=== PATIENT | female | born 1985 | race Caucasian/White ===

== ENCOUNTER 2020-08-22 17:33 | Emergency (ER) | payer OTHER ==
[2020-08-22] MEDS ORDERED: ALBUTEROL 1 PUFF INH STA (18:41)
[2020-08-22 18:59] LABS: HCG UR QUAL NEGATIVE
[2020-08-22 19:09] VITALS: BP 114/72
--- NOTE | 2020-08-22 19:16 | ED Physician Documentation ---
History of Present Illness - Stated complaint Stated Complaint: CHEST TIGHTNESS - Chief complaint Chief Complaint: Cardiac - History obtained from History obtained from: Patient - History of Present Illness Timing: How many days ago (3) Pain level max: 2 Pain level now: 2 - Additonal information Additional information: 34-year-old female presents to the emergency department stating that her Chest feels tight and like she is having difficulty getting a full breath. Does have a history of asthma. She states that her inhaler was several years old when she tried to use it. She states she did not feel any different. No fevers. No coughing. She states that she did have emesis a few days ago x1. Patient states that there is a possibility she could be . No cardiac history. No recent travel. No recent antibiotics. Review of Systems Constitutional: denies: Fever, Chills Ears: denies: Ear pain Nose: denies: Rhinorrhea / runny nose, Congestion, Sinus pressure / pain Throat: denies: Sore throat Cardiac: denies: Palpitations, Calf pain Respiratory: reports: Dyspnea, Wheezing. denies: Cough, Hemoptysis GI: denies: Abdominal Pain, Nausea, Vomiting : denies: Dysuria, Frequency, Hesitancy Skin: denies: Rash Musculoskeletal: denies: Neck pain, Back pain Neurologic: denies: Headache PD PAST MEDICAL HISTORY - Past Medical History Past Medical History: Yes Respiratory: Asthma Psych: Anxiety - Past Surgical History Past Surgical History: No - Present Medications Home Medications: Ambulatory Orders Medication Instructions Recorded Confirmed Albuterol Sulf [Ventolin Hfa 1 - 2 puffs INH Q4HR PRN #1 inhaler 08/22/20 Inhaler] Diclofenac Potassium 50 mg PO DAILY 08/22/20 08/22/20 Escitalopram [Lexapro] 10 mg PO BIDWM 08/22/20 08/22/20 - Allergies Allergies/Adverse Reactions: Allergies Allergy/AdvReac Type Severity Reaction Status Date / Time egg white Allergy Nausea Uncoded 08/22/20 17:37 - Social History Does the pt smoke?: No Smoking Status: Never smoker Does the pt drink ETOH?: Yes Does the pt have substance abuse?: No - Immunizations Immunizations are current?: Yes PD ED PE NORMAL - Vitals Vital signs reviewed: Yes - General General: Alert and oriented X 3, No acute distress - HEENT HEENT: Moist mucous membranes - Neck Neck: Supple, no meningeal sign - Cardiac Cardiac: RRR, Strong equal pulses - Respiratory Respiratory: No respiratory distress, Other (Diminished breath sounds bilaterally, mild wheeze) - Abdomen Abdomen: Soft, Non tender, Non distended - Derm Derm: Warm and dry - Neuro Neuro: Alert and oriented X 3 - Psych Psych: Normal mood, Normal affect Results - Vitals Vitals: Vital Signs - 24 hr 08/22/20 08/22/20 08/22/20 17:39 18:25 19:08 Temperature 36.6 C Heart Rate 91 103 H 84 Respiratory 18 14 14 Rate Blood Pressure 118/68 104/66 114/72 O2 Saturation 100 99 98 08/22/20 19:10 Temperature Heart Rate 88 Respiratory 16 Rate Blood Pressure O2 Saturation Oxygen O2 Source Room air - EKG (time done) 1745 Rate: Rate (enter#) (75) Rhythm: NSR [place]: Normal Intervals: Normal TN QRS: Normal Ischemia: Normal ST segments - Labs Labs: Laboratory Tests 08/22/20 18:52 Urine HCG, Qual NEGATIVE PD MEDICAL DECISION MAKING - ED course Complexity details: re-evaluated patient, considered differential, d/w patient ED course: 34-year-old female with what appears to be an asthma exacerbation. She was given albuterol here and symptoms resolved. Feels much better. Will prescribe a new inhaler for home. She will use this with a spacer. Patient counseled regarding signs and symptoms for which I believe and urgent re-evaluation would be necessary. Patient with good understanding of and agreement to plan and is comfortable going home at this time This document was made in part using voice recognition software. While efforts are made to proofread this document, sound alike and grammatical errors may occur. Departure - Departure Disposition: Home, Self Care Clinical Impression: Asthma Qualifiers: Asthma severity: unspecified severity Asthma persistence: unspecified Asthma complication type: unspecified Qualified Code(s): J45.909 - Unspecified asthma, uncomplicated Condition: Good Instructions: ED Reactive Airway Disease Follow-Up: Michael Dick [Primary Care Provider] - Within 1 week Prescriptions: Albuterol Sulf [Ventolin Hfa Inhaler] 1 - 2 puffs INH Q4HR PRN #1 inhaler PRN Reason: Shortness Of Air/Wheezing Comments: Follow-up with your primary care provider for further care. Return if you worsen. Continue to use the inhaler as needed at home. Discharge Date/Time: 08/22/20 19:34
== END 2020-08-22 19:34 | disposition home or self-care (01) ==
LOC: ED 17:33
DX: J45.901 Unspecified asthma with (acute) exacerbation (principal); R07.89 Other chest pain
CPT/HCPCS: 81025; 93005; 94640; 99283

== ENCOUNTER 2020-09-11 18:16 | Emergency (ER) | payer OTHER ==
[2020-09-11 18:35] VITALS: BP 109/77
--- NOTE | 2020-09-11 18:36 | ED Physician Documentation ---
PD HPI HEAD INJURY - Stated complaint Stated Complaint: HEAD INJURY - Chief complaint Chief Complaint: Trauma Hd/Nk - History obtained from History obtained from: Patient - History of Present Illness Mechanism of head injury: Blow Where head injury occurred: Work Timing - onset: How many days ago (3) Pain level max: 7 Pain level now: 6 Location of injury: Back Quality of pain: Aching, Dull Associated symptoms: Neck pain (mild). No: LOC, AMS, Amnesia, Nausea / vomiting, Paresthesias, Seizures, Ear drainage, Nasal drainage Contributing factors: No: Anticoagulated, Intoxicated Recently seen: Not recently seen - Additional information Additional information: Patient is a 34-year-old female who works at [employer]. She states 3 days ago she was at work when a solid core door fell off of a ladder striking her in the back of the head and neck. She states since that time she has had headaches and nausea. No vomiting. No loss of consciousness. No numbness or tingling. No focal neurological deficits. Worse with movement, better with rest. Denies any possibility of . Is not breast-feeding. Review of Systems Ten Systems: 10 systems reviewed and negative Constitutional: denies: Fever, Chills Throat: denies: Sore throat Respiratory: denies: Cough GI: denies: Vomiting, Diarrhea : denies: Unable to Void, Incontinent Skin: denies: Rash Musculoskeletal: denies: Back pain Neurologic: denies: Focal weakness, Numbness, Headache PD PAST MEDICAL HISTORY - Past Medical History Respiratory: Asthma Psych: Anxiety - Past Surgical History Past Surgical History: No - Present Medications Home Medications: Ambulatory Orders Medication Instructions Recorded Confirmed Albuterol Sulf [Ventolin Hfa 1 - 2 puffs INH Q4HR PRN #1 inhaler 08/22/20 Inhaler] Diclofenac Potassium 50 mg PO DAILY 08/22/20 08/22/20 Escitalopram [Lexapro] 10 mg PO BIDWM 08/22/20 08/22/20 - Allergies Allergies/Adverse Reactions: Allergies Allergy/AdvReac Type Severity Reaction Status Date / Time egg white Allergy Nausea Uncoded 09/11/20 18:21 - Social History Does the pt smoke?: No Smoking Status: Never smoker Does the pt drink ETOH?: Yes Does the pt have substance abuse?: No - Immunizations Immunizations are current?: Yes PD ED PE NORMAL - Vitals Vital signs reviewed: Yes - General General: Alert and oriented X 3, No acute distress - HEENT HEENT: Atraumatic, PERRL, EOMI, Moist mucous membranes, Other (No scalp hematomas. No palpable skull fractures.) - Neck Neck: Supple, no meningeal sign, Other (Mild tenderness upper C-spine. No step- off or deformity.) - Cardiac Cardiac: RRR - Respiratory Respiratory: No respiratory distress, Clear bilaterally - Abdomen Abdomen: Soft, Non tender, Non distended - Back Back: No CVA TTP, No spinal TTP - Derm Derm: Warm and dry - Extremities Extremities: No edema - Neuro Neuro: Alert and oriented X 3, parts lister 2-12 intact, No motor deficit, No sensory deficit, Normal speech Eye Opening: Spontaneous Motor: Obeys Commands Verbal: Oriented GCS Score: 15 - Psych Psych: Normal mood, Normal affect Results - Vitals Vitals: Vital Signs - 24 hr 09/11/20 18:21 Temperature 36.5 C Heart Rate 73 Respiratory 16 Rate Blood Pressure 109/77 O2 Saturation 98 Oxygen O2 Source Room air - Rads (name of study) head Ct Radiology: Prelim report reviewed, EMP read contemporaneously, See rad report (no acute abnormality) c-spiine CT Radiology: Prelim report reviewed, EMP read contemporaneously, See rad report (no acute abnormality) PD MEDICAL DECISION MAKING - ED course Complexity details: reviewed results, re-evaluated patient, considered differential, d/w patient ED course: 34-year-old female status post a closed head injury 3 days ago. Still symptomatic. Also having some neck pain. CT of the head and neck are normal. Likely mild concussion. We will have her follow-up with her doctor for further care. Patient counseled regarding signs and symptoms for which I believe and urgent re-evaluation would be necessary. Patient with good understanding of and agreement to plan and is comfortable going home at this time This document was made in part using voice recognition software. While efforts are made to proofread this document, sound alike and grammatical errors may occur. Departure - Departure Disposition: 01 Home, Self Care Clinical Impression: Closed head injury Qualifiers: Encounter type: initial encounter Qualified Code(s): S09.90XA - Unspecified injury of head, initial encounter Condition: Good Instructions: ED Head Injury Closed Follow-Up: Michael Dick [Primary Care Provider] - Within 1 week Comments: Follow up with your doctor in 1 week for repeat evaluation. Your head CT and cervical spine CT are negative tonight. You likely have a mild concussion. Avoid tv, phone and computer screens. You should not be driving while you are still having symptoms of headaches and nausea. Discharge Date/Time: 09/11/20 19:15
--- NOTE | 2020-09-11 19:00 | CT Report ---
PROCEDURE: CERVICAL SPINE WO INDICATIONS: falling object vs neck 3 days ago TECHNIQUE: Noncontrast 3 mm thick sections acquired from the skull base to the T4 level. Sagittal and coronal r eformats were then constructed. For radiation dose reduction, the following was used: automated exp osure control, adjustment of mA and/or kV according to patient size. COMPARISON: None. FINDINGS: Image quality: Excellent. Bones: No fractures or dislocations. Visualized superior ribs are intact. Mild to moderate C5-C6 de generative disc disease. Mild bilateral C6-C7 and C7-T1 facet arthropathy. Soft tissues: Prevertebral soft tissues are normal in thickness. No paravertebral hematomas. No ap ical pneumothoraces. IMPRESSION: No fracture. No acute osseous lesion. If there is continued clinical concern for pathology, then MRI should be considered for further evaluation. Reviewed by: Amy Vásquez MD, PhD on 09/11/2020 6:58 PM PDT Approved by: Amy Vásquez MD, PhD on 09/11/2020 6:58 PM PDT Station ID: [id number]
--- NOTE | 2020-09-11 19:01 | CT Report ---
PROCEDURE: HEAD WO INDICATIONS: falling object vs head 3 days ago TECHNIQUE: Noncontrast 4.5 mm thick angled axial sections acquired from the foramen magnum to the vertex. For r adiation dose reduction, the following was used: automated exposure control, adjustment of mA and/or kV according to patient size. COMPARISON: None. FINDINGS: Image quality: Excellent. CSF spaces: Basal cisterns are patent. No extra-axial fluid collections. Ventricles are normal in size and shape. Brain: No midline shift. No intracranial masses or hemorrhage. Incidental note made of cavum septum pellucidum. [place]osta-white matter interface is normal. Skull and face: Calvarium and visualized facial bones are intact, without suspicious lesions. Sinuses: Visualized sinuses and mastoids are clear. IMPRESSION: No acute intracranial disease process. Reviewed by: Amy Vásquez MD, PhD on 09/11/2020 7:00 PM PDT Approved by: Amy Vásquez MD, PhD on 09/11/2020 7:00 PM PDT Station ID: [id number]
== END 2020-09-11 19:15 | disposition home or self-care (01) ==
LOC: ED 18:16
DX: S09.90XA Unspecified injury of head, initial encounter (principal); W20.8XXA Other cause of strike by thrown, projected or falling object, initial encounter; Y93.89 Activity, other specified; Y92.512 Supermarket, store or market as the place of occurrence of the external cause; Y99.0 Civilian activity done for income or pay
CPT/HCPCS: 99284

== ENCOUNTER 2020-11-17 20:19 | Emergency (ER) | payer OTHER ==
[2020-11-17 21:47] LABS: BASOPHILS # (AUTO) 0.1 10^3/uL (0.0-0.1); BASOPHILS % (AUTO) 0.8 %; EOSINOPHILS # (AUTO) 0.2 10^3/uL (0.0-0.7); EOSINOPHILS % (AUTO) 3.3 %; HCT - HEMATOCRIT 38.4 % (37.0-47.0); HGB - HEMOGLOBIN 12.8 g/dL (12.0-16.0); LYMPHOCYTES # (AUTO) 1.5 10^3/uL (1.5-3.5); LYMPHOCYTES % (AUTO) 23.2 %; MEAN CORPUSCULAR HEMOGLOBIN 32.9 pg (27.0-31.0); MEAN CORPUSCULAR HGB CONC 33.3 g/dL (32.0-36.0); MEAN CORPUSCULAR VOLUME 98.7 fL (81.0-99.0); MEAN PLATELET VOLUME 9.6 fL (7.9-10.8); MONOCYTES # (AUTO) 0.6 10^3/uL (0.0-1.0); MONOCYTES % (AUTO) 8.6 %; NEUTROPHILS # (AUTO) 4.3 10^3/uL (1.5-6.6); NEUTROPHILS % (AUTO) 63.9 %; PLT - PLATELET COUNT 264 10^3/uL (130-450); RED BLOOD COUNT 3.89 10^6/uL (4.20-5.40); RED CELL DISTRIBUTION WIDTH 12.2 % (12.0-15.0); WHITE BLOOD COUNT 6.6 x10^3/uL (4.8-10.8)
[2020-11-17 22:00] LABS: ALBUMIN 4.6 g/dL (3.2-5.5); ALBUMIN/GLOBULIN RATIO 1.5 (1.0-2.2); BILIRUBIN,TOTAL 0.7 mg/dL (0.2-1.0); CALCIUM 9.5 mg/dL (8.5-10.3); CREATININE 0.7 mg/dL (0.4-1.0); POTASSIUM 3.8 mmol/L (3.5-5.0); TOTAL PROTEIN 7.7 g/dL (6.7-8.2)
--- NOTE | 2020-11-17 22:12 | ED Physician Documentation ---
History of Present Illness - Stated complaint Stated Complaint: BODY PX/HEADACHES X14 DAYS - Chief complaint Chief Complaint: General - History obtained from History obtained from: Patient - Additonal information Additional information: 34-year-old woman presents with generalized body aches for the past 2 weeks, starting in her wrists, moving upwards, now affecting her thighs and arms. She also has had headache to bilateral neck area radiating to the front that is aching, intermittent. Not currently with headache. Patient is not vaccinated against COVID-19. Also endorses intermittent dizziness and brain fog. AOx4 present. Review of Systems Ten Systems: 10 systems reviewed and negative Constitutional: reports: Myalgias, Fatigue. denies: Fever, Chills Musculoskeletal: reports: Neck pain Neurologic: reports: Generalized weakness, Headache PD PAST MEDICAL HISTORY - Past Medical History Past Medical History: Yes Respiratory: Asthma Psych: Anxiety - Past Surgical History Past Surgical History: Yes General: Colonoscopy, EGD Ortho: Other - Present Medications Home Medications: Ambulatory Orders Medication Instructions Recorded Confirmed Albuterol Sulf [Ventolin Hfa 1 - 2 puffs INH Q4HR PRN #1 inhaler 08/22/2011/17 Inhaler] Diclofenac Potassium 50 mg PO DAILY 08/22/20 11/17/20 Escitalopram [Lexapro] 10 mg PO BIDWM 08/22/20 11/17/20 - Allergies Allergies/Adverse Reactions: Allergies Allergy/AdvReac Type Severity Reaction Status Date / Time egg white Allergy Nausea Uncoded 11/17/20 20:26 - Social History Does the pt smoke?: No Smoking Status: Never smoker Does the pt drink ETOH?: Yes Does the pt have substance abuse?: No - Immunizations Immunizations are current?: Yes - POLST Patient has POLST: No PD ED PE NORMAL - Vitals Vital signs reviewed: Yes - General General: Alert and oriented X 3, No acute distress, Well developed/nourished - HEENT HEENT: Atraumatic, PERRL, EOMI - Neck Neck: Supple, no meningeal sign - Cardiac Cardiac: RRR - Respiratory Respiratory: No respiratory distress, Clear bilaterally - Abdomen Abdomen: Non tender, Non distended - Derm Derm: Normal color, Warm and dry - Extremities Extremities: No deformity - Neuro Neuro: Alert and oriented X 3, escrow manager 2-12 intact, No motor deficit, No sensory deficit, Normal speech, Other ( normal strength, gait, cerebellar testing) - Psych Psych: Normal mood, Normal affect Results - Vitals Vitals: Vital Signs - 24 hr 11/17/20 20:27 Temperature 36.8 C Heart Rate 89 Respiratory 18 Rate Blood Pressure 136/87 H O2 Saturation 99 Oxygen O2 Source Room air - Labs Labs: Laboratory Tests 11/17/20 11/17/20 11/17/20 21:42 21:42 22:17 WBC 6.6 RBC 3.89 L Hgb 12.8 Hct 38.4 MCV 98.7 MCH 32.9 H MCHC 33.3 RDW 12.2 Plt Count 264 MPV 9.6 Neut # (Auto) 4.3 Lymph # (Auto) 1.5 [place] # (Auto) 0.6 Eos # (Auto) 0.2 Baso # (Auto) 0.1 Absolute Nucleated RBC 0.00 Nucleated RBC % 0.0 Sodium 137 Potassium 3.8 Chloride 102 Carbon Dioxide 28 Anion Gap 7.0 BUN 13 Creatinine 0.7 Estimated GFR (MDRD) 95 Glucose 99 Calcium 9.5 Total Bilirubin 0.7 AST 20 ALT 16 Alkaline Phosphatase 57 Total Protein 7.7 Albumin 4.6 Globulin 3.1 Albumin/Globulin Ratio 1.5 Lipase 31 Urine HCG, Qual NEGATIVE PD MEDICAL DECISION MAKING - ED course ED course: 34-year-old woman presents with vague generalized symptoms without any red flags at present. Screening blood work noncontributory. Patient advised to get the COVID-19 vaccine. Return precautions given. She will follow up with her primary doctor. Departure - Departure Disposition: 01 Home, Self Care Clinical Impression: Body aches, Headache Condition: Good Instructions: ED Headache Tension, ED Muscle Aching Comments: You were seen in the emergency department for body aches, headache and weakness over the past 2 weeks. Your screening lab work did not show any concerning findings and you are not . Please follow-up with your primary doctor this week. Please consider getting the COVID-19 vaccine. It has been extensively studied and is not correlated with reduced fertility.
[2020-11-17 22:25] LABS: HCG UR QUAL NEGATIVE
[2020-11-17 22:49] LABS: T4 (THYROXINE) 9.78 ug/dL (6.09-12.23)
[2020-11-17 22:53] LABS: THYROID STIMULATING HORMONE 2.91 uIU/mL (0.34-5.60)
[2020-11-17 22:55] LABS: FREE T4 (FREE THYROXINE) 1.15 ng/dL (0.58-1.64)
[2020-11-17 22:56] VITALS: BP 108/79
== END 2020-11-17 23:03 | disposition home or self-care (01) ==
LOC: ED 20:19
DX: M79.10 Myalgia, unspecified site (principal); R51.9 Headache, unspecified
CPT/HCPCS: 36415; 80053; 81025; 83690; 84436; 84439; 84443; 85025; 99283; 99284

== ENCOUNTER 2021-04-13 13:32 | Emergency (ER) | payer OTHER ==
[2021-04-13 13:57] VITALS: BP 120/71
--- NOTE | 2021-04-13 14:00 | ED Physician Documentation ---
PD HPI CHEST PAIN - Stated complaint Stated Complaint: FEVER/COUGH/CONGESTION - Chief complaint Chief Complaint: Resp - History obtained from History obtained from: Patient - Additional information Additional information: 35-year-old woman with RA has been sick for about 10 days body aches, fevers, mild shortness of breath at night. Now diarrhea for the last few days. Her just tested positive for Covid and her work required her to come to the ER for a Covid test. She is not vaccinated against Covid. Review of Systems Constitutional: denies: Fever, Chills, Myalgias Cardiac: denies: Chest pain / pressure Respiratory: denies: Cough PD PAST MEDICAL HISTORY - Past Medical History Respiratory: Asthma Psych: Anxiety - Past Surgical History Past Surgical History: Yes General: Colonoscopy, EGD Ortho: Other - Present Medications Home Medications: Ambulatory Orders Medication Instructions Recorded Confirmed Albuterol Sulf [Ventolin Hfa 1 - 2 puffs INH Q4HR PRN #1 inhaler 08/22/20 11/17/20 Inhaler] Diclofenac Potassium 50 mg PO DAILY 08/22/20 11/17/20 Escitalopram [Lexapro] 10 mg PO BIDWM 08/22/20 11/17/20 - Allergies Allergies/Adverse Reactions: Allergies Allergy/AdvReac Type Severity Reaction Status Date / Time egg white Allergy Nausea Uncoded 04/13/21 13:54 - Social History Does the pt smoke?: No Smoking Status: Never smoker Does the pt drink ETOH?: Yes Does the pt have substance abuse?: No - Immunizations Immunizations are current?: Yes - POLST Patient has POLST: No PD ED PE NORMAL - Vitals Vital signs reviewed: Yes - General General: Alert and oriented X 3, No acute distress - Derm Derm: No rash - Neuro Neuro: Alert and oriented X 3, Normal speech Results - Vitals Vitals: Vital Signs - 24 hr 04/13/21 13:49 Temperature 36.8 C Heart Rate 93 Respiratory 16 Rate Blood Pressure 120/71 O2 Saturation 99 Oxygen O2 Source Room air PD MEDICAL DECISION MAKING - ED course ED course: Patient presents for Covid testing and voices no other needs. Covid test was ordered. Departure - Departure Disposition: 01 Home, Self Care Clinical Impression: Viral syndrome Condition: Good Record reviewed to determine appropriate education?: Yes Instructions: ED Viral Syndrome Comments: You have a Covid test pending. You need to self quarantine until the result is done and negative. Do not leave your house. Do not get near anybody. The results should be done in 48 to 72 hours. We will call with a positive result, the fastest way to get a negative result for confirmation though is to go to the hospital website at [email or web address], click on the my [facility] tab and sign up for the patient portal. If any friends or family get sick and would like to have a Covid test done, but do not have signs or symptoms that would necessitate being hospitalized, there are multiple local options for Covid testing. [facility] keeps an updated list of testing and vaccination options at: [email or web address]. Forms: Activity restrictions Discharge Date/Time: 04/13/21 14:06
== END 2021-04-13 14:06 | disposition home or self-care (01) ==
LOC: ED 13:32
DX: U07.1 COVID-19 (principal); B34.9 Viral infection, unspecified
CPT/HCPCS: 99282; 99283

== ENCOUNTER 2021-08-16 11:42 | Outpatient (CLI) | payer OTHER ==
[2021-08-16 18:56] LABS: THYROID STIMULATING HORMONE 2.01 uIU/mL (0.34-5.60)
[2021-08-16 19:00] LABS: PROLACTIN 8.31 ng/mL
[2021-08-16 19:24] LABS: FOLLICLE STIMULATING HORMONE 10.41 mIU/mL
[2021-08-16 20:54] LABS: ESTIMATED AVERAGE GLUCOSE 94 mg/dL (70-100); HEMOGLOBIN A1c% 4.9 % (4.27-6.07)
== END 2021-08-16 11:43 | disposition home or self-care (01) ==
LOC: LAB.N 11:42
PROVIDERS: ATTEND Obstetrics & Gynecology
DX: Z31.69 Encounter for other general counseling and advice on procreation (principal)
CPT/HCPCS: 36415; 82397; 82670; 83001; 83036; 84146; 84443

== ENCOUNTER 2021-08-27 20:51 | Outpatient (CLI) | payer OTHER ==
--- NOTE | 2021-08-28 10:15 | Ultrasound Report ---
PROCEDURE: Pelvic w/Transvaginal INDICATIONS: MODERATE CERVICAL DYSPLASIA TECHNIQUE: Real-time scanning was performed of the pelvic organs, with image documentation. Additional endovagi nal scanning was necessary due to incomplete visualization of the adnexal and endometrial structures by transabdominal scanning. COMPARISON: None. FINDINGS: Limited scanning through the kidneys shows no hydronephrosis. No pathologic free abdominal or pelvic fluid. Uterus: Uterus is normal in size at 7.4 x 3.8 x 5.3 cm. The endometrium measures 5 mm in combined t hickness. 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 A few endometrial cysts noted near the ce rvix. Ovaries: Right ovary measures 3.9 x 2.1 x 2.9 cm with ovarian volume of 9 mL. There are greater than 12 follicles on the right. Left ovary measures 4.0 x 3.0 x 2.9 cm with ovarian volume of 18.3 mL. Th ere are greater than 12 follicles identified on the left. No suspicious ovarian or adnexal mass lesio ns. A few exophytic left ovarian cyst. Largest measures 2.8 cm in size. Other: A few adjacent cysts noted within the posterior cul-de-sac measuring in total 3.0 x 1.9 x 1.6 cm. A loculated fluid collection may have a similar appearance but is thought less likely. IMPRESSION: 1. Pelvic ultrasound without acute sonographic abnormalities. 2. 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 3. Multiple bilateral ovarian follicles with prominent left ovarian volume. Findings may represent po lycystic ovarian syndrome. 4. A suspected 3.0 cm area of adjacent cysts in the posterior cul-de-sac likely representing adnexal cysts. A loculated fluid collection may have a similar appearance but is thought to be less likely. 5. Multiple presumed endometrial cysts noted near the cervix. Consider further characterization with pelvic MRI given reported history of moderate cervical dysplas ia. Reviewed by: Jose Reyes MD on 08/28/2021 10:14 AM PDT Approved by: Jose Reyes MD on 08/28/2021 10:14 AM PDT Station ID: [id number]
== END 2021-08-27 20:52 | disposition home or self-care (01) ==
LOC: DI 20:51
PROVIDERS: ATTEND Obstetrics & Gynecology
DX: N87.1 Moderate cervical dysplasia (principal)

== ENCOUNTER 2021-09-03 21:45 | Emergency (ER) | payer OTHER ==
[2021-09-03 22:06] VITALS: BP 123/75
[2021-09-03] MEDS ORDERED: predniSONE 20 MG TABLET PO STA (22:06)
--- NOTE | 2021-09-03 22:08 | ED Physician Documentation ---
PD HPI SKIN - Stated complaint Stated Complaint: ALLERGIC REACTION/HIVES/NAUSEA - Chief complaint Chief Complaint: Wound - History obtained from History obtained from: Patient - Additional information Additional information: 35-year-old woman with history of rheumatoid on every other week Mark mowed the grass couple of weeks ago and got some swollen burning areas on her ankles and then did it again yesterday and now has diffuse burning red rash especially in the exposed areas. No shortness of breath or wheezing. No nausea. Review of Systems Constitutional: reports: Reviewed and negative Throat: reports: Reviewed and negative Cardiac: reports: Reviewed and negative Respiratory: reports: Reviewed and negative PD PAST MEDICAL HISTORY - Past Medical History Respiratory: Asthma Psych: Anxiety Musculoskeletal: Rheumatoid arthritis - Past Surgical History Past Surgical History: Yes General: Colonoscopy, EGD Ortho: Other - Present Medications Home Medications: Ambulatory Orders Medication Instructions Recorded Confirmed Albuterol Sulf [Ventolin Hfa 1 - 2 puffs INH Q4HR PRN #1 inhaler 08/22/20 09/03/21 Inhaler] Adalimumab [Humira Pen] SUBQ 09/03/21 Hydroxychloroquine [Plaquenil] 200 mg PO BID 09/03/21 09/03/21 predniSONE [Deltasone] 20 mg PO [id number] #[id number] tab 09/03/21 - Allergies Allergies/Adverse Reactions: Allergies Allergy/AdvReac Type Severity Reaction Status Date / Time egg white Allergy Nausea Uncoded 09/03/21 22:01 - Social History Does the pt smoke?: No Smoking Status: Never smoker Does the pt drink ETOH?: Yes Does the pt have substance abuse?: No - Immunizations Immunizations are current?: Yes - POLST Patient has POLST: No PD ED PE NORMAL - Vitals Vital signs reviewed: Yes - General General: Alert and oriented X 3, No acute distress - HEENT HEENT: Pharynx benign - Respiratory Respiratory: No respiratory distress, Clear bilaterally - Derm Derm: Other (She has erythema of the upper chest and posterior neck as well as anterior forearms.) - Neuro Neuro: Alert and oriented X 3, Normal speech Results - Vitals Vitals: Vital Signs - 24 hr 09/03/21 09/03/21 21:55 22:04 Temperature 36.3 C L Heart Rate 94 90 Respiratory 17 16 Rate Blood Pressure 113/69 123/75 O2 Saturation 100 98 Oxygen O2 Source Room air Departure - Departure Disposition: 01 Home, Self Care Clinical Impression: Allergic reaction Condition: Good Record reviewed to determine appropriate education?: Yes Instructions: ED Allergic Reaction General Other Prescriptions: predniSONE [Deltasone] 20 mg PO [id number] #21 tab Comments: I sent your prescription to [facility] in [place]. Return for new or worsening symptoms. Follow-up with your primary care physician in a few days for recheck.
== END 2021-09-03 22:12 | disposition home or self-care (01) ==
LOC: ED 21:45
DX: T78.40XA Allergy, unspecified, initial encounter (principal); X58.XXXA Exposure to other specified factors, initial encounter; M06.9 Rheumatoid arthritis, unspecified
CPT/HCPCS: 99282; 99283; J7512

== ENCOUNTER 2022-01-06 19:16 | Emergency (ER) | payer OTHER ==
--- NOTE | 2022-01-06 20:32 | ED Physician Documentation ---
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 Onset tonight while at rest drinking a glass of wine. She denies h/o similar symptoms. Symptoms have improved spontaneously by the time of this evaluation. Review of Systems Constitutional: denies: Fever Throat: denies: Sore throat Cardiac: denies: Chest pain / pressure (chest feels tight/constricted, no pain/pressure per se), Palpitations Respiratory: reports: Dyspnea. denies: Cough Skin: denies: Rash PD PAST MEDICAL HISTORY - Past Medical History Respiratory: Asthma Psych: Anxiety Musculoskeletal: Rheumatoid arthritis - Past Surgical History Past Surgical History: Yes General: Colonoscopy, EGD Ortho: Other - Present Medications Home Medications: Ambulatory Orders Medication Instructions Recorded Confirmed Albuterol Sulf [Ventolin Hfa 1 - 2 puffs INH Q4HR PRN #1 inhaler 08/22/20 09/03/21 Inhaler] Adalimumab [Humira Pen] SUBQ 09/03/21 Hydroxychloroquine [Plaquenil] 200 mg PO BID 09/03/21 09/03/21 predniSONE [Deltasone] 20 mg PO [id number] #21 tab 09/03/21 predniSONE [Deltasone] 40 mg PO DAILY 3 Days #6 tablet 01/06/22 - Allergies Allergies/Adverse Reactions: Allergies Allergy/AdvReac Type Severity Reaction Status Date / Time egg white Allergy Nausea Uncoded 01/06/22 19:21 - Social History Does the pt smoke?: No Smoking Status: Never smoker Does the pt drink ETOH?: Yes Does the pt have substance abuse?: No - Immunizations Immunizations are current?: Yes - POLST Patient has POLST: No PD ED PE NORMAL - Vitals Vital signs reviewed: Yes - General General: Alert and oriented X 3, No acute distress, Well developed/nourished - HEENT HEENT: Pharynx benign, Other (no lux/intraoral swelling) - Cardiac Cardiac: RRR, No murmur, No gallop, No rub - Respiratory Respiratory: No respiratory distress, Clear bilaterally - Abdomen Abdomen: Soft - Extremities Extremities: No edema Results - Vitals Vitals: Oxygen O2 Source Room air - EKG (time done) No standard instances Rate: Rate (enter#) (74) Rhythm: NSR [place]: Normal Intervals: Normal [place] QRS: Normal Ischemia: Normal ST segments, Non specific changes (T wave flat/inverted III, aVF, V2, V3) Compare to prior EKG: Unchanged from prior EKG - Rads (name of study) chest xray Radiology: Prelim report reviewed, See rad report PD MEDICAL DECISION MAKING - ED course Complexity details: reviewed results, re-evaluated patient, considered differential, d/w patient ED course: EKG and chest xray without concerning findings. Description of symptoms is not particularly s/o ACS and given her age and unremarkable EKG, further testing not indicated at this time. She is in NAD and unremarkable exam including auscultation of heart and lungs, and no swelling on oropharyngeal exam. Given her description of "scratchy" throat immediately followed by sensation of dyspnea and throat/chest tightness, will treat with prednisone for possible allergic reaction. Departure - Departure Disposition: 01 Home, Self Care Clinical Impression: Dyspnea Qualifiers: Dyspnea type: unspecified Qualified Code(s): R06.00 - Dyspnea, unspecified Condition: Good Instructions: ED Dyspnea Shortness of Breath Follow-Up: Michael Dick [Primary Care Provider] - Prescriptions: predniSONE [Deltasone] 40 mg PO DAILY 3 Days #6 tablet Comments: Your chest xray is normal and your EKG has minor, non-specific findings that do not suggest a specific nor concerning problem; additionally, your EKG is unchanged compared to an EKG performed 08/22/20. You were given a steroid (prednisone) in the ER; your symptoms are potentially consistent with allergic reaction and with the sensation of throat constriction and difficulty breathing, it is reasonable to treat with anti-histamines (which you have indicated you have at home and, as we discuss, will take as soon as you get home) and a steroid such as prednisone. A prescription for a few more days of prednisone has been electronically submitted to [facility] pharmacy in [place]. I recommend you fill the prescription tomorrow, but if you have no symptoms by tomorrow night (when you would be due for the next dose), you would not need further dosing. Discharge Date/Time: 01/06/22:06
--- NOTE | 2022-01-06 21:46 | XRAY Report ---
PROCEDURE: Chest 2 View X-Ray INDICATIONS: chest tightness TECHNIQUE: 2 views of the chest. COMPARISON: None. FINDINGS: Surgical changes and devices: None. Lungs and pleura: No pleural effusions or pneumothorax. Lungs are clear. Mediastinum: Mediastinal contours are normal. Heart size is normal. Bones and chest wall: No suspicious bony abnormalities. Soft tissues appear unremarkable. IMPRESSION: 1. No acute cardiopulmonary disease. Reviewed by: Lisandro Calix MD on 01/06/2022 9:44 PM PDT Approved by: Lisandro Calix MD on 01/06/2022 9:44 PM PDT Station ID: [id number]
[2022-01-06] MEDS ORDERED: predniSONE 20 MG TABLET PO STA (21:50)
[2022-01-06 22:06] VITALS: BP 110/70
== END 2022-01-06 22:06 | disposition home or self-care (01) ==
LOC: ED 19:16
DX: R06.00 Dyspnea, unspecified (principal)
CPT/HCPCS: 71046; 93005; 99283; J7512

== ENCOUNTER 2022-12-02 08:00 | Outpatient (CLI) | payer OTHER ==
[2022-12-02 16:21] LABS: BILIRUBIN,URINE NEGATIVE (NEGATIVE); GLUCOSE, URINE (UA) NEGATIVE (NEGATIVE); KETONES,URINE (UA) NEGATIVE (NEGATIVE); LEUKOCYTE ESTERASE, URINE NEGATIVE (NEGATIVE); NITRITE,URINE NEGATIVE (NEGATIVE); OCCULT BLOOD,URINE NEGATIVE (NEGATIVE); PROTEIN,URINE NEGATIVE (NEGATIVE); UROBILINOGEN,URINE 0.2 (NORMAL) E.U./dL (NORMAL)
[2022-12-02 16:26] LABS: CLARITY,URINE CLEAR (CLEAR)
[2022-12-02 16:52] LABS: BACTERIA,URINE None Seen /HPF (None Seen); RBC,URINE 0-5 /HPF (0-5); SQUAMOUS EPITHELIAL CELL,UR FEW Squamous (<= Few); WBC,URINE 0-3 /HPF (0-5)
== END 2022-12-02 23:59 | disposition home or self-care (01) ==
LOC: LAB.WC 08:00
PROVIDERS: ATTEND Obstetrics & Gynecology
DX: O09.90 Supervision of high risk pregnancy, unspecified, unspecified trimester (principal)
CPT/HCPCS: 81001; 87086

== ENCOUNTER 2022-12-06 07:00 | Outpatient (CLI) | payer OTHER ==
--- NOTE | 2022-12-06 12:39 | Ultrasound Report ---
PROCEDURE: OB First Trimester w/TV INDICATIONS: POSITIVE TEST OUTSIDE/PRIOR DATING DATA: Last menstrual period (LMP): 10/18/2022. LMP-based estimated date of delivery (CARMEN): 07/24/2022. First dating scan (date and location): 12/06/2022. Estimated date of delivery (CARMEN) from first dating scan: 07/28/2022. TECHNIQUE: Real-time scanning was performed of the fetus and maternal pelvic organs, with image documentation. Endovaginal scanning was also performed to better visualize the fetus and maternal ovaries. COMPARISON: None FINDINGS: Intrauterine gestational sac present. Embryo: 0.62 cm, 6 weeks 3 days Heart rate: 123 bpm. Other: No perigestational fluid collection. Measurement variability in dating: +/- 4 weeks by LMP, +/- 7 days by mean sac diameter (use before 6 weeks gestation if crown-rump length not able to be measured), +/- 5 days by crown-rump length (6-12 weeks gestation). Maternal organs: Ovaries appear within normal limits. Left corpus luteal cyst measuring 1.5 cm. Left paraovarian cyst measuring 1.4 x 2.2 x 1.4 cm. IMPRESSION: Very early living first trimester intrauterine with crown-rump length and heartbeat measuri ng 6 weeks 3 days. Reviewed by: José Alcantara MD on 12/06/2022 12:38 PM PDT Approved by: José Alcantara MD on 12/06/2022 12:38 PM PDT Station ID: [id number]
== END 2022-12-06 07:01 | disposition home or self-care (01) ==
LOC: DI 07:00
PROVIDERS: ATTEND Obstetrics & Gynecology
DX: O09.91 Supervision of high risk pregnancy, unspecified, first trimester (principal); Z3A.01 Less than 8 weeks gestation of pregnancy

== ENCOUNTER 2022-12-21 16:19 | Emergency (ER) | payer OTHER ==
[2022-12-21 16:32] VITALS: BP 115/68; O2SAT 99
--- NOTE | 2022-12-21 16:46 | ED Physician Documentation ---
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 She is about 9 weeks she has had an ultrasound done at 7 weeks and today she has developed some cramping and bleeding. She was asked by the OB to come to the emergency department for evaluation. She states that she initially had some symptoms of afternoon nausea but was really resolved she continues to have symptoms of breast tenderness. She is having a quarter sized spot of blood this morning and now has some brown blood with wiping. Review of Systems Constitutional: denies: Fever Eyes: denies: Decreased vision Ears: denies: Ear pain Nose: denies: Congestion Throat: denies: Sore throat Cardiac: denies: Chest pain / pressure Respiratory: denies: Dyspnea, Cough GI: reports: Abdominal Pain (pelvic cramping). denies: Nausea, Vomiting, Constipation, Diarrhea : reports: Vaginal bleeding, Now EGA (9wks). denies: Dysuria, Frequency Skin: denies: Rash Musculoskeletal: denies: Neck pain, Back pain, Extremity pain Neurologic: denies: Generalized weakness, Focal weakness, Numbness PD PAST MEDICAL HISTORY - Past Medical History Respiratory: Asthma Psych: Anxiety Musculoskeletal: Rheumatoid arthritis - Past Surgical History Past Surgical History: Yes General: Colonoscopy, EGD Ortho: Other - Present Medications Home Medications: Ambulatory Orders Medication Instructions Recorded Confirmed Albuterol Sulf [Ventolin Hfa 1 - 2 puffs INH Q4HR PRN #1 inhaler 08/22/20 09/03/21 Inhaler] Adalimumab [Humira Pen] SUBQ 09/03/21 Hydroxychloroquine [Plaquenil] 200 mg PO BID 09/03/21 09/03/21 predniSONE [Deltasone] 20 mg PO [id number] #21 tab 09/03/21 predniSONE [Deltasone] 40 mg PO DAILY 3 Days #6 tablet 01/06/22 - Allergies Allergies/Adverse Reactions: Allergies Allergy/AdvReac Type Severity Reaction Status Date / Time egg white Allergy Nausea Uncoded 12/21/22 16:22 - Social History Does the pt smoke?: No Smoking Status: Never smoker Does the pt drink ETOH?: Yes Does the pt have substance abuse?: No - Immunizations Immunizations are current?: Yes - POLST Patient has POLST: No PD ED PE NORMAL - Vitals Vital signs reviewed: Yes (tachy mild ) - General General: Alert and oriented X 3, No acute distress, Well developed/nourished - HEENT HEENT: Atraumatic, PERRL, EOMI - Neck Neck: Supple, no meningeal sign, No bony TTP - Respiratory Respiratory: No respiratory distress - Derm Derm: Normal color, Warm and dry, No rash - Extremities Extremities: No deformity, No edema - Neuro Neuro: Alert and oriented X 3, senior living advisor 2-12 intact, No motor deficit, No sensory deficit Eye Opening: Spontaneous Motor: Obeys Commands Verbal: Oriented GCS Score: 15 - Psych Psych: Normal mood, Normal affect Results - Vitals Vitals: Vital Signs - 24 hr 12/21/22 12/21/22 16:22 16:26 Temperature 36.8 C 36.8 C Heart Rate 102 H 100 Respiratory 18 18 Rate Blood Pressure 115/68 115/68 O2 Saturation 99 99 Oxygen O2 Source Room air - Labs Labs: Laboratory Tests 12/21/22 17:22 Urine Color YELLOW Urine Clarity SL. CLOUDY Urine pH 5.5 Ur Specific [place] >=1.030 H Urine Protein NEGATIVE Urine Glucose (UA) NEGATIVE Urine Ketones NEGATIVE Urine Occult Blood MODERATE H Urine Nitrite NEGATIVE Urine Bilirubin NEGATIVE Urine Urobilinogen 0.2 (NORMAL) Ur Leukocyte Esterase NEGATIVE Urine RBC 6-10 H Urine WBC 0-3 Ur Squamous Epith Cells MOD Squamous H Urine Bacteria None Seen Ur Microscopic Review INDICATED Urine Culture Comments NOT INDICATED - Rads (name of study) OB U/S Relevant Findings:: See rad report, Other (report from tech) PD Medical Decision Making - ED course Complexity details: reviewed results, re-evaluated patient, considered differential, d/w patient, d/w family ED course: 36-year-old female 9 weeks after IVF has developed first trimester spotting and cramping. Today we find a viable 8-week 5-day fetus with minimal subchorionic hemorrhage. I have shared the statistics with the patient of a high likelihood of carrying to term despite the bleeding and cramping. The patient is extremely happy with ultrasound pictures of her unborn daughter. Departure - Departure Disposition: 01 Home, Self Care Clinical Impression: First trimester bleeding Condition: Stable Instructions: Bleeding Early Preg Follow-Up: Michael Dick [Primary Care Provider] - Moris Rhodes MD [Provider Admit Priv/Credential] - Comments: Andie today it looks like you have a viable fetus and with this we expect you to have a greater than 95% chance of carrying this fetus to term. 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 Forms: PCP List Discharge Date/Time: 12/21/22 17:47
[2022-12-21 17:31] LABS: BILIRUBIN,URINE NEGATIVE (NEGATIVE); GLUCOSE, URINE (UA) NEGATIVE (NEGATIVE); KETONES,URINE (UA) NEGATIVE (NEGATIVE); LEUKOCYTE ESTERASE, URINE NEGATIVE (NEGATIVE); NITRITE,URINE NEGATIVE (NEGATIVE); OCCULT BLOOD,URINE MODERATE (NEGATIVE); PH,URINE 5.5 PH (5.0-7.5); PROTEIN,URINE NEGATIVE (NEGATIVE); UROBILINOGEN,URINE 0.2 (NORMAL) E.U./dL (NORMAL)
[2022-12-21 17:39] LABS: CLARITY,URINE SL. CLOUDY (CLEAR)
[2022-12-21 17:50] LABS: BACTERIA,URINE None Seen /HPF (None Seen); SQUAMOUS EPITHELIAL CELL,UR MOD Squamous (<= Few); WBC,URINE 0-3 /HPF (0-5)
--- NOTE | 2022-12-21 18:31 | Ultrasound Report ---
PROCEDURE: OB First Trimester w/TV INDICATIONS: bleeding cramping 9wks OUTSIDE/PRIOR DATING DATA: Last menstrual period (LMP): 10/18/2022. LMP-based estimated date of delivery (CARMEN): 07/25/2023. First dating scan (date and location): 12/06/2022. Estimated date of delivery (CARMEN) from first dating scan: 07/28/2023. TECHNIQUE: Real-time scanning was performed of the fetus and maternal pelvic organs, with image documentation. Endovaginal scanning was also performed to better visualize the fetus and maternal ovaries. COMPARISON: None. FINDINGS: Intrauterine gestational sac present. Embryo: [place]-rump length 2.1 cm corresponds with 8 week 5 day gestation. No subchorionic bleed Heart rate: 182 bpm. Other: Normal yolk sac Measurement variability in dating: +/- 4 weeks by LMP, +/- 7 days by mean sac diameter (use before 6 weeks gestation if crown-rump length not able to be measured), +/- 5 days by crown-rump length (6-12 weeks gestation). Maternal organs: Ovaries appear within normal limits. Paraovarian cyst 1.8 x 2.0 cm. Corpus luteum c yst on the left 1.8 cm IMPRESSION: Single live intrauterine consistent with 8 week 5 day gestation No perigestational bleed Reviewed by: Harshal Vines MD on 12/21/2022 5:29 PM MOSES Approved by: Harshal Vines MD on 12/21/2022 5:29 PM AKFRANCOIS Station ID: [id number]
== END 2022-12-21 17:47 | disposition home or self-care (01) ==
LOC: ED 16:19
DX: O20.9 Hemorrhage in early pregnancy, unspecified (principal); Z3A.01 Less than 8 weeks gestation of pregnancy
CPT/HCPCS: 81001; 81003; 87086; 99283; 99284

== ENCOUNTER 2022-12-27 20:02 | Emergency (ER) | payer OTHER ==
[2022-12-27 20:26] VITALS: BP 106/65; O2SAT 99
[2022-12-27] MEDS ORDERED: ACETAMINOPHEN 500 MG TABLET PO STA (20:38)
--- NOTE | 2022-12-27 20:39 | ED Physician Documentation ---
PD HPI ABD PAIN - Stated complaint Stated Complaint: PREG/R SIDE PX - Chief complaint Chief Complaint: Abd Pain - History obtained from History obtained from: Patient - Additional information Additional information: 36-year-old G1 with history of RA. She is 10 weeks . She had 2 weeks of right upper quadrant pain. It is generally worse after eating and throughout the day but better at night and first thing in the morning. She is been nauseous with it for the last few days. She is not short of breath. Initially she thought it was a rib out of place and she went to her chiropractor, but that was not helpful. No history of abdominal surgeries. PD PAST MEDICAL HISTORY - Past Medical History Respiratory: Asthma Psych: Anxiety Musculoskeletal: Rheumatoid arthritis - Past Surgical History Past Surgical History: Yes General: Colonoscopy, EGD Ortho: Other - Present Medications Home Medications: Ambulatory Orders Medication Instructions Recorded Confirmed Albuterol Sulf [Ventolin Hfa 1 - 2 puffs INH Q4HR PRN #1 inhaler 08/22/20 09/03/21 Inhaler] Adalimumab [Humira Pen] SUBQ 09/03/21 Hydroxychloroquine [Plaquenil] 200 mg PO BID 09/03/21 09/03/21 predniSONE [Deltasone] 20 mg PO [id number] #21 tab 09/03/21 predniSONE [Deltasone] 40 mg PO DAILY 3 Days #6 tablet 01/06/22 Cefdinir 300 mg PO BID #20 cap 12/27/22 - Allergies Allergies/Adverse Reactions: Allergies Allergy/AdvReac Type Severity Reaction Status Date / Time egg white Allergy Nausea Uncoded 12/27/22 20:20 - Social History Does the pt smoke?: No Smoking Status: Never smoker Does the pt drink ETOH?: Yes Does the pt have substance abuse?: No - Immunizations Immunizations are current?: Yes - POLST Patient has POLST: No PD ED PE NORMAL - Vitals Vital signs reviewed: Yes - General General: Alert and oriented X 3, No acute distress - Cardiac Cardiac: RRR, No murmur - Respiratory Respiratory: No respiratory distress, Clear bilaterally - Abdomen Abdomen: Other (Tender in the right upper quadrant without surgical signs, no flank tenderness.) - Female Female : Other (Bedside ultrasound demonstrates single live IUP, heart rate 170) - Back Back: No CVA TTP, No spinal TTP - Derm Derm: Normal color, Warm and dry - Extremities Extremities: No edema, No calf tenderness / cord Results - Vitals Vitals: Vital Signs - 24 hr 12/27/22 20:15 Temperature 36.5 C Heart Rate 100 Respiratory 18 Rate Blood Pressure 106/65 O2 Saturation 99 Oxygen O2 Source Room air - Labs Labs: Laboratory Tests 12/27/22 12/27/22 12/27/22 20:28 20:39 20:39 WBC 6.9 RBC 3.80 L Hgb 12.6 Hct 37.3 MCV 98.2 MCH 33.2 H MCHC 33.8 RDW 12.5 Plt Count 210 MPV 9.9 Neut # (Auto) 4.6 Lymph # (Auto) 1.3 L [place] # (Auto) 0.7 Eos # (Auto) 0.2 Baso # (Auto) 0.0 Absolute Nucleated RBC 0.00 Nucleated RBC % 0.0 Sodium 137 Potassium 3.5 Chloride 105 Carbon Dioxide 24 Anion Gap 8.0 BUN 7 Creatinine 0.7 Estimated GFR (MDRD) 94 Glucose 103 Calcium 9.5 Total Bilirubin 0.4 AST 14 ALT 8 L Alkaline Phosphatase 51 Total Protein 6.7 Albumin 4.3 Globulin 2.4 Albumin/Globulin Ratio 1.8 Lipase 53 Urine Color YELLOW Urine Clarity HAZY Urine pH 6.0 Ur Specific [place] >=1.030 H Urine Protein NEGATIVE Urine Glucose (UA) NEGATIVE Urine Ketones NEGATIVE Urine Occult Blood NEGATIVE Urine Nitrite NEGATIVE Urine Bilirubin NEGATIVE Urine Urobilinogen 0.2 (NORMAL) Ur Leukocyte Esterase TRACE H Urine RBC 0-5 Urine WBC 4-5 Ur Squamous Epith Cells MOD Squamous H Urine Crystals 11-25 Ca Oxalate Urine Bacteria Moderate H Urine Mucus Moderate Strands Ur Microscopic Review INDICATED Urine Culture Comments NOT INDICATED PD Medical Decision Making - ED course ED course: 36-year-old woman who is 10 weeks with reassuring bedside ultrasound regarding the IUP has had 2 weeks of right upper quadrant pain radiating to the back. Worse after eating and throughout the day but better at night and first thing in the morning. Work-up here demonstrates normal CBC, CMP. Urinalysis does have bacteriuria. Will treat with antibiotics for presumed pyelonephritis. No clinical evidence of biliary pathology although right upper quadrant pain is considered. PE is also considered, that said formal right upper quadrant ultrasound preliminarily negative including for hydronephrosis. She is not short of breath, has no leg symptoms, and has normal pulse oximetry. Departure - Departure Disposition: 01 Home, Self Care Clinical Impression: Pyelonephritis Abdominal pain Qualifiers: Abdominal location: right upper quadrant Qualified Code(s): R10.11 - Right upper quadrant pain Qualifiers: Weeks of gestation: 10 weeks Qualified Code(s): Z3A.10 - 10 weeks gestation of Condition: Good Record reviewed to determine appropriate education?: Yes Instructions: Pyelonephritis Dc Follow-Up: Moris Rhodes MD [Provider Admit Priv/Credential] - Prescriptions: Cefdinir 300 mg PO BID #20 cap Comments: Ultrasound of the right upper quadrant showed no abnormality of the right kidney nor the gallbladder. Basic labs including CBC, CMP were normal. Urinalysis does show bacteria and very reasonable to treat with antibiotics given the status. We will perform a urine culture and if a change in antibiotics is necessary we will call you over the next few days. Follow-up with your OB as scheduled. Return for new or worsening symptoms. Forms: PCP List Discharge Date/Time: 12/27/22 21:37
[2022-12-27 20:45] LABS: BASOPHILS % (AUTO) 0.3 %; EOSINOPHILS # (AUTO) 0.2 10^3/uL (0.0-0.7); EOSINOPHILS % (AUTO) 2.8 %; HCT - HEMATOCRIT 37.3 % (37.0-47.0); HGB - HEMOGLOBIN 12.6 g/dL (12.0-16.0); LYMPHOCYTES # (AUTO) 1.3 10^3/uL (1.5-3.5); MEAN CORPUSCULAR HEMOGLOBIN 33.2 pg (27.0-31.0); MEAN CORPUSCULAR HGB CONC 33.8 g/dL (32.0-36.0); MEAN CORPUSCULAR VOLUME 98.2 fL (81.0-99.0); MEAN PLATELET VOLUME 9.9 fL (7.9-10.8); MONOCYTES # (AUTO) 0.7 10^3/uL (0.0-1.0); MONOCYTES % (AUTO) 10.5 %; NEUTROPHILS # (AUTO) 4.6 10^3/uL (1.5-6.6); NEUTROPHILS % (AUTO) 67.1 %; PLT - PLATELET COUNT 210 10^3/uL (130-450); RED CELL DISTRIBUTION WIDTH 12.5 % (12.0-15.0); WHITE BLOOD COUNT 6.9 x10^3/uL (4.8-10.8)
[2022-12-27 20:47] LABS: BILIRUBIN,URINE NEGATIVE (NEGATIVE); GLUCOSE, URINE (UA) NEGATIVE (NEGATIVE); KETONES,URINE (UA) NEGATIVE (NEGATIVE); LEUKOCYTE ESTERASE, URINE TRACE (NEGATIVE); NITRITE,URINE NEGATIVE (NEGATIVE); OCCULT BLOOD,URINE NEGATIVE (NEGATIVE); PROTEIN,URINE NEGATIVE (NEGATIVE); UROBILINOGEN,URINE 0.2 (NORMAL) E.U./dL (NORMAL)
[2022-12-27 20:48] LABS: CLARITY,URINE HAZY (CLEAR)
[2022-12-27 21:03] LABS: BACTERIA,URINE Moderate /HPF (None Seen); MUCUS,URINE Moderate Strands; RBC,URINE 0-5 /HPF (0-5); SQUAMOUS EPITHELIAL CELL,UR MOD Squamous (<= Few)
[2022-12-27 21:09] LABS: CRYSTALS,URINE 11-25 Ca Oxalate /LPF
[2022-12-27 21:10] LABS: ALBUMIN 4.3 g/dL (3.2-5.5); ALBUMIN/GLOBULIN RATIO 1.8 (1.0-2.2); BILIRUBIN,TOTAL 0.4 mg/dL (0.2-1.0); CALCIUM 9.5 mg/dL (8.5-10.3); CREATININE 0.7 mg/dL (0.6-1.3); POTASSIUM 3.5 mmol/L (3.5-4.5); TOTAL PROTEIN 6.7 g/dL (6.4-8.9)
[2022-12-27] MEDS ORDERED: CEFPODOXIME PROXETIL 100 MG TABLET PO STA (21:20)
--- NOTE | 2022-12-27 22:02 | Ultrasound Report ---
PROCEDURE: Abdomen Limited INDICATIONS: ruq pain TECHNIQUE: Real-time focused scanning was performed of the abdomen, with image documentation. COMPARISONS: Correlation is made with the recent abdomen ultrasound, 12/21/2022. FINDINGS: Liver: The liver demonstrates normal size. The liver demonstrates mildly increased echogenicity, wh ich limits ultrasound sensitivity for detection of masses. Gallbladder: No gallstones or significant sludge can be seen. The gallbladder wall does not appear th ickened. There is no specific pericholecystic fluid. The sonographic Portillo's sign is negative. Biliary ducts: Intrahepatic bile ducts are non-dilated. Extrahepatic bile duct caliber measures 4 m m. Normal is 6-7 mm or less in diameter, or 10 mm or less post-cholecystectomy. Pancreas: Visualized portions of the pancreas are sonographically normal. Right kidney: Normal in size and echotexture. Right kidney measures 10 cm long. No hydronephrosis or nephrolithiasis. No solid masses. No complex renal cystic lesions which require follow-up. Miscellaneous: No free abdominal fluid. This patient is , the measured heart rate is 169 beats per minute. IMPRESSION: Negative for right kidney hydronephrosis. The gallbladder demonstrates a normal sonographic appearance. No biliary dilatation is seen. Mild fatty liver infiltration. Reviewed by: Rusty Gomez MD on 12/27/2022 9:01 PM MOSES Approved by: Rusty Gomez MD on 12/27/2022 9:01 PM MOSES Station ID: [id number]
== END 2022-12-27 21:37 | disposition home or self-care (01) ==
LOC: ED 20:02
DX: O23.01 Infections of kidney in pregnancy, first trimester (principal); Z3A.10 10 weeks gestation of pregnancy
CPT/HCPCS: 36415; 76705; 80053; 81001; 83690; 85025; 87086; 99284; A9270; 81003

== ENCOUNTER 2023-03-16 12:00 | Emergency (ER) | payer OTHER ==
[2023-03-16] MEDS ORDERED: SODIUM CHLORIDE 0.9% 1,000 ML IV STA (12:25)
--- NOTE | 2023-03-16 12:34 | ED Physician Documentation ---
History of Present Illness - Stated complaint Stated Complaint: GLF - Chief complaint Chief Complaint: Neuro - History obtained from History obtained from: Patient - Additonal information Additional information: Patient comes to the emergency department chief complaint of syncopal episode while sitting on the toilet. She states that she is 21 weeks and has a history of RA. 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 She states she talked to both her RA specialist and he r OB and neither one is sure why she is having the joint pain. The patient states she awoke around 4:00 this morning with a cramping, burning, sensation in her general abdomen. She states that she thinks that she may have just gotten up too quickly and not allowed her limbs time to limber up, but she got up to go to the bathroom and after sitting down on the toilet, believes she lost her balance and fell. She does not remember having palpitations, chest pain, shortness of breath, or lightheadedness. She states that she suddenly realized she was coming to on the floor and felt as though she may have hit her left forehead on the baseboard. She is not sure if she had a syncopal episode first or if she passed out because of hitting her head. Her helped her back up to the toilet where she finished defecating and was able to go back to bed. The patient states she has been drinking plenty of fluids lately. She has not been febrile. She denies feeling sick in any other way. No vaginal bleeding or discharge. PD PAST MEDICAL HISTORY - Past Medical History Past Medical History: Yes Respiratory: Asthma Psych: Anxiety Musculoskeletal: Rheumatoid arthritis - Past Surgical History Past Surgical History: Yes General: Colonoscopy, EGD Ortho: Other - Present Medications Home Medications: Ambulatory Orders Medication Instructions Recorded Confirmed Albuterol Sulf [Ventolin Hfa 1 - 2 puffs INH Q4HR PRN #1 inhaler 08/22/20 09/03/21 Inhaler] Adalimumab [Humira Pen] SUBQ 09/03/21 Hydroxychloroquine [Plaquenil] 200 mg PO BID 09/03/21 09/03/21 predniSONE [Deltasone] 20 mg PO [id number] #21 tab 05/23/22 predniSONE [Deltasone] 40 mg PO DAILY 3 Days #6 tablet 01/06/22 Cefdinir 300 mg PO BID #20 cap 12/27/22 - Allergies Allergies/Adverse Reactions: Allergies Allergy/AdvReac Type Severity Reaction Status Date / Time egg white Allergy Nausea Uncoded 03/16/23 12:25 - Social History Does the pt smoke?: No Smoking Status: Never smoker Does the pt drink ETOH?: Yes Does the pt have substance abuse?: No - Immunizations Immunizations are current?: Yes - POLST Patient has POLST: No PD ED PE NORMAL - Vitals Vital signs reviewed: Yes - General General: Alert and oriented X 3, No acute distress, Well developed/nourished - HEENT HEENT: Atraumatic, PERRL, EOMI, Moist mucous membranes - Neck Neck: Supple, no meningeal sign - Cardiac Cardiac: RRR, No murmur - Respiratory Respiratory: No respiratory distress, Clear bilaterally - Abdomen Abdomen: Soft, Non tender, Non distended - Back Back: No spinal TTP - Derm Derm: Normal color, Warm and dry, No rash - Extremities Extremities: No deformity, No edema - Neuro Neuro: Alert and oriented X 3, Other (Grossly intact) - Psych Psych: Normal mood, Normal affect Results - Vitals Vitals: Oxygen O2 Source Room air - Labs Labs: Laboratory Tests 03/16/23 03/16/23 03/16/23 12:37 12:37 12:37 WBC 7.7 RBC 3.36 L Hgb 11.1 L Hct 33.7 L MCV 100.3 H MCH 33.0 H MCHC 32.9 RDW 13.5 Plt Count 205 MPV 9.3 Neut # (Auto) 6.3 Lymph # (Auto) 0.7 L [place] # (Auto) 0.5 Eos # (Auto) 0.1 Baso # (Auto) 0.0 Absolute Nucleated RBC 0.00 Nucleated RBC % 0.0 ESR 68 H Sodium 135 Potassium 3.8 Chloride 105 Carbon Dioxide 22 Anion Gap 8.0 BUN 8 Creatinine 0.6 Estimated GFR (MDRD) 111 Glucose 100 Calcium 9.3 Total Bilirubin 0.3 AST 14 ALT 8 L Alkaline Phosphatase 63 C-Reactive Protein 0.8 H Total Protein 6.9 Albumin 4.0 Globulin 2.9 Albumin/Globulin Ratio 1.4 Lipase 39 PD Medical Decision Making - ED course Complexity details: reviewed results, re-evaluated patient, considered differential, d/w patient ED course: The patient was treated with IV fluids in the emergency department. Her laboratory studies were mostly unremarkable, but given the patient's RA, I did perform CRP and sed rate and both of these were somewhat elevated. I have discussed with her that I am not sure what to make of this in light of her and RA and have encouraged her to follow-up with her food management aide about this. As far as the , heart tones were normal, and there were no signs or symptoms to indicate trouble with the at this time. She was found to be feeling much better on reevaluation and I felt she was stable for discharge. We have discussed the need for aggressive hydration while and the need for close follow-up with her OB specialist. We discussed the usual indications for return. Departure - Departure Disposition: 01 Home, Self Care Clinical Impression: Dehydration, Second trimester Episode of syncope Qualifiers: Syncope type: unspecified Qualified Code(s): R55 - Syncope and collapse Condition: Stable Instructions: ED Dehydration, ED Syncope Vasovagal Comments: Your labs look fairly good overall, though your inflammatory markers are elevated. The significance of this in relation to your with underlying rheumatoid arthritis is unclear, though it may be related to the joint pain and stiffness you have been having. Please continue your plans to follow-up with your OB and rheumatology specialists for these and other concerns . You were treated with a liter of IV fluid which improved your heart rate to normal. As such, it is very likely that you are somewhat dehydrated. You should aim to drink at least 8 to 10 cups of water every day to stay well- hydrated while you are . Your baby's heart rate looked good with an average rate in the 150s. Please continue your care as planned. Forms: PCP List Discharge Date/Time: 03/16/23 13:48
[2023-03-16 12:42] LABS: BASOPHILS % (AUTO) 0.1 %; EOSINOPHILS # (AUTO) 0.1 10^3/uL (0.0-0.7); EOSINOPHILS % (AUTO) 1.8 %; HCT - HEMATOCRIT 33.7 % (37.0-47.0); HGB - HEMOGLOBIN 11.1 g/dL (12.0-16.0); LYMPHOCYTES # (AUTO) 0.7 10^3/uL (1.5-3.5); LYMPHOCYTES % (AUTO) 9.6 %; MEAN CORPUSCULAR HGB CONC 32.9 g/dL (32.0-36.0); MEAN CORPUSCULAR VOLUME 100.3 fL (81.0-99.0); MEAN PLATELET VOLUME 9.3 fL (7.9-10.8); MONOCYTES # (AUTO) 0.5 10^3/uL (0.0-1.0); MONOCYTES % (AUTO) 6.5 %; NEUTROPHILS # (AUTO) 6.3 10^3/uL (1.5-6.6); NEUTROPHILS % (AUTO) 81.6 %; PLT - PLATELET COUNT 205 10^3/uL (130-450); RED BLOOD COUNT 3.36 10^6/uL (4.20-5.40); RED CELL DISTRIBUTION WIDTH 13.5 % (12.0-15.0); WHITE BLOOD COUNT 7.7 x10^3/uL (4.8-10.8)
[2023-03-16 12:56] LABS: ALBUMIN/GLOBULIN RATIO 1.4 (1.0-2.2); BILIRUBIN,TOTAL 0.3 mg/dL (0.2-1.0); CALCIUM 9.3 mg/dL (8.5-10.3); CREATININE 0.6 mg/dL (0.6-1.3); CRP - C-REACTIVE PROTEIN 0.8 mg/dL (<0.5); POTASSIUM 3.8 mmol/L (3.5-4.5); TOTAL PROTEIN 6.9 g/dL (6.4-8.9)
[2023-03-16 13:45] VITALS: BP 113/72; O2SAT 96
== END 2023-03-16 13:48 | disposition home or self-care (01) ==
LOC: ED 12:00
DX: O26.892 Other specified pregnancy related conditions, second trimester (principal); R55 Syncope and collapse; O99.891 Other specified diseases and conditions complicating pregnancy; M06.9 Rheumatoid arthritis, unspecified; Z3A.21 21 weeks gestation of pregnancy; O99.282 Endocrine, nutritional and metabolic diseases complicating pregnancy, second trimester; E86.0 Dehydration; O9A.212 Injury, poisoning and certain other consequences of external causes complicating pregnancy, second trimester; S09.90XA Unspecified injury of head, initial encounter
CPT/HCPCS: 36415; 80053; 83690; 85025; 85651; 86140; 96360; 99283

== ENCOUNTER 2023-04-21 10:38 | Outpatient (CLI) | payer OTHER ==
[2023-04-21 17:49] LABS: HCT - HEMATOCRIT 32.7 % (37.0-47.0); HGB - HEMOGLOBIN 10.8 g/dL (12.0-16.0); MEAN CORPUSCULAR HEMOGLOBIN 33.9 pg (27.0-31.0); MEAN CORPUSCULAR VOLUME 102.5 fL (81.0-99.0); MEAN PLATELET VOLUME 10.8 fL (7.9-10.8); RED BLOOD COUNT 3.19 10^6/uL (4.20-5.40); RED CELL DISTRIBUTION WIDTH 13.9 % (12.0-15.0); WHITE BLOOD COUNT 9.7 x10^3/uL (4.8-10.8)
== END 2023-04-21 10:39 | disposition home or self-care (01) ==
LOC: LAB.N 10:38
PROVIDERS: ATTEND Obstetrics & Gynecology
DX: O09.91 Supervision of high risk pregnancy, unspecified, first trimester (principal)
CPT/HCPCS: 36415; 82950; 85027

== ENCOUNTER 2023-04-28 07:41 | Outpatient (CLI) | payer OTHER ==
[2023-04-28 08:20] LABS: GTT GLUCOSE,FASTING 86 mg/dL (74-109)
== END 2023-04-28 07:42 | disposition home or self-care (01) ==
LOC: LAB 07:41
PROVIDERS: ATTEND Obstetrics & Gynecology
DX: O99.810 Abnormal glucose complicating pregnancy (principal)
CPT/HCPCS: 36415; 82951; 82952

== ENCOUNTER 2023-06-02 15:58 | Outpatient (CLI) | payer OTHER ==
--- NOTE | 2023-06-03 18:57 | Ultrasound Report ---
PROCEDURE: OB Follow up INDICATIONS: SUPERVISION OF PREG RESULTING FROM ASSISTED REPROD OUTSIDE/PRIOR DATING DATA: Last menstrual period (LMP): 10/19/2019. LMP-based estimated date of delivery (CARMEN): 07/25/2023. First dating scan (date and location): 12/05/2022. Estimated date of delivery (CARMEN) from first dating scan: 07/28/2023. The below data below was generated using the ultrasound CARMEN of 07/28/2023 TECHNIQUE: Real-time scanning was performed of the fetus, with image documentation and biometric measurements. COMPARISON: OB ultrasound 12/21/2022 FINDINGS: General: A single living intrauterine gestation is present. Presentation: Transverse Placenta: Placental position is anterior, without previa. Amniotic fluid index: 14 cm, within normal limits for gestational age. Largest pocket 4.6 cm heart rate: 132 beats per minute. Maternal cervical canal: 2.7 cm long; normal length is 2.5 cm or more. biometrics: Biparietal diameter: 8.2 cm 33 weeks 0 days of the 3rd percentile Head circumference: 31.2 cm 34 weeks 6 days a 6 percentile Abdominal circumference: 20.8 cm 30 weeks 6 days 73rd percentile Femur length: 6.0 cm 31 weeks 1 day 17th percentile Estimated gestational age from initial scan: 32 weeks 0 Composite gestational age from present scan: 33 weeks 0 days Estimated weight and percentile: 2004 g 58th percentile Measurement variability in biometric dating: +/- 10 days from 12-20 weeks gestation, +/- 2 weeks from 20-30 weeks gestation, +/- 3 weeks at 30 weeks gestation or more. Other: Not applicable. IMPRESSION: Single live intrauterine with gestational age of 33 weeks 0 days. Appropriate interval growth and AZUL. Reviewed by: Viv Tatum MD on 06/03/2023 6:56 PM PST Approved by: Viv Tatum MD on 06/03/2023 6:56 PM PST Station ID: [id number]
== END 2023-06-02 15:59 | disposition home or self-care (01) ==
LOC: DI 15:58
PROVIDERS: ATTEND Obstetrics & Gynecology
DX: O09.813 Supervision of pregnancy resulting from assisted reproductive technology, third trimester (principal); Z3A.33 33 weeks gestation of pregnancy

== ENCOUNTER 2023-06-09 08:00 | Outpatient (CLI) | payer OTHER ==
[2023-06-09 16:12] LABS: CREATININE,URINE 175.3 mg/dL; PROTEIN/CREATININE RATIO,URINE 0.1 (<=0.2)
== END 2023-06-09 23:59 | disposition home or self-care (01) ==
LOC: LAB.WC 08:00
PROVIDERS: ATTEND Nurse Practitioner
DX: O09.511 Supervision of elderly primigravida, first trimester (principal); O99.810 Abnormal glucose complicating pregnancy
CPT/HCPCS: 82570; 84156

== ENCOUNTER 2023-06-23 08:00 | Outpatient (CLI) | payer OTHER | END 2023-06-23 23:59 | disposition home or self-care (01) | LOC: LAB.WC 08:00 | PROVIDERS: ATTEND Obstetrics & Gynecology | DX: Z36.85 Encounter for antenatal screening for Streptococcus B (principal); D53.9 Nutritional anemia, unspecified | CPT/HCPCS: 36415; 82728; 85027; 87797 ==

== ENCOUNTER 2023-06-23 09:56 | Outpatient (CLI) | payer OTHER ==
[2023-06-23 10:16] LABS: HCT - HEMATOCRIT 37.8 % (37.0-47.0); HGB - HEMOGLOBIN 12.1 g/dL (12.0-16.0); MEAN CORPUSCULAR HEMOGLOBIN 32.2 pg (27.0-31.0); MEAN CORPUSCULAR VOLUME 100.5 fL (81.0-99.0); MEAN PLATELET VOLUME 10.2 fL (7.9-10.8); RED BLOOD COUNT 3.76 10^6/uL (4.20-5.40); RED CELL DISTRIBUTION WIDTH 13.2 % (12.0-15.0); WHITE BLOOD COUNT 11.8 x10^3/uL (4.8-10.8)
== END 2023-06-23 09:57 | disposition home or self-care (01) ==
LOC: LAB 09:56
PROVIDERS: ATTEND Obstetrics & Gynecology
DX: D53.9 Nutritional anemia, unspecified (principal)
CPT/HCPCS: 36415; 82728; 85027

== ENCOUNTER 2023-06-30 09:50 | Outpatient (CLI) | payer OTHER ==
--- NOTE | 2023-07-02 02:04 | Ultrasound Report ---
PROCEDURE: OB Limited INDICATIONS: SUPERVISION OF PREG RESULTING FROM ASSISTED REPROD OUTSIDE/PRIOR DATING DATA: Last menstrual period (LMP): 10/18/2022. LMP-based estimated date of delivery (CARMEN): 07/25/2023. First dating scan (date and location): 06/30/2023, [facility]. Estimated date of delivery (CARMEN) from first dating scan: 2023. The below data below was generated using the ultrasound CARMEN of 07/28/2023 TECHNIQUE: Real-time scanning was performed of the fetus, with image documentation. E COMPARISON: None. FINDINGS: A single living intrauterine gestation is present. Presentation: Transverse Placenta: Placental position is anterior, without previa. Amniotic fluid index: 15.3 cm heart rate: 166 beats per minutes. Maternal cervical canal: 2.6 cm long; normal length is 2.5 cm or more. Estimated gestational age from initial scan: 36 weeks, 0 days. Left ovary is unremarkable. Right ovary is not well seen. Limited anatomic scan demonstrates no gross abnormality. IMPRESSION: Single intrauterine gestation with estimated age of 36 weeks, 0 days Reviewed by: Malu Becerra MD on 07/02/2023 1:03 AM MOSES Approved by: Malu Becerra MD on 07/02/2023 1:03 AM MOSES Station ID: [id number]
== END 2023-06-30 09:51 | disposition home or self-care (01) ==
LOC: DI 09:50
PROVIDERS: ATTEND Obstetrics & Gynecology
DX: O09.813 Supervision of pregnancy resulting from assisted reproductive technology, third trimester (principal); Z3A.36 36 weeks gestation of pregnancy

== ENCOUNTER 2023-06-30 10:31 | Outpatient (CLI) | payer OTHER ==
[2023-06-30 11:05] VITALS: BP 120/76
--- NOTE | 2023-06-30 17:46 | PROCEDURE REPORT ---
- HPI Current EDU 07/27/23 Gestation 36 Weeks and 1 Days 1 Para 0 Vital Signs Temperature 98.6 F 06/30/23 10:42 Heart Rate 94 06/30/23 10:42 Respiratory Rate 19 06/30/23 10:42 Blood Pressure 120/76 06/30/23 10:42 Temperature 98.6 F 06/30/23 10:42 Heart Rate 94 06/30/23 10:42 Respiratory Rate 19 06/30/23 10:42 Blood Pressure 120/76 06/30/23 10:42 O2 Saturation If not protocol: Oxygen Flow, liters/minute - NST Procedure NST Procedure Start Date 06/30/23 Start Time 10:50 Stop Time 11:15 Vibroacoustic Stimulation Used No Patient States Movement Yes: IVF - Results and Plan Plan: Patient is a 37-year-old G1, P0 at 36 weeks gestation here for NST. NST Performed 06/30/2023 NST Read 06/30/2023 FHT: 145 bpm baseline, moderate variability, accelerations present, no decelerations. Reactive NST [place]: Quiescent Diagnosis 36 weeks gestation IVF Continue with scheduled OB care
== END 2023-06-30 11:25 | disposition home or self-care (01) ==
LOC: WFO 10:31 → FBP 10:34 → WFO 11:25
PROVIDERS: ATTEND Obstetrics & Gynecology
DX: O09.813 Supervision of pregnancy resulting from assisted reproductive technology, third trimester (principal); Z3A.36 36 weeks gestation of pregnancy
CPT/HCPCS: 59025

== ENCOUNTER 2023-07-03 13:52 | Outpatient (CLI) | payer OTHER ==
[2023-07-03 14:07] VITALS: O2SAT 97
--- NOTE | 2023-07-03 14:21 | PROCEDURE REPORT ---
- HPI Current EDU 07/27/23 Gestation 36 Weeks and 4 Days 1 Para 0 Vital Signs Temperature 97.7 F 07/03/23 14:05 Heart Rate 110 H 07/03/23 14:05 Respiratory Rate 17 07/03/23 14:05 Blood Pressure 123/96 H 07/03/23 14:05 O2 Saturation 97 07/03/23 14:05 Temperature 97.7 F 07/03/23 14:06 Heart Rate 110 H 07/03/23 14:05 Respiratory Rate 17 07/03/23 14:05 Blood Pressure 130/79 07/03/23 14:39 O2 Saturation 97 07/03/23 14:05 If not protocol: Oxygen Flow, liters/minute - NST Procedure NST Procedure Start Time 10:50 Stop Time 11:15 - Results and Plan Plan: Patient is a 37-year-old G1, P0 at 36 weeks 4 days gestation here for NST. NST Performed 07/03/2023 NST Read 07/03/2023 FHT: 140 bpm baseline, moderate variability, accelerations present, no decelerations. Reactive NST [place]: Diagnosis 36 weeks gestation IVF Breech presentation Continue with scheduled OB care
[2023-07-03 14:46] VITALS: BP 130/79
== END 2023-07-03 14:40 | disposition home or self-care (01) ==
LOC: WFO 13:52 → FBP 13:53 → WFO 14:40
PROVIDERS: ATTEND Obstetrics & Gynecology
DX: O09.812 Supervision of pregnancy resulting from assisted reproductive technology, second trimester (principal); O32.1XX0 Maternal care for breech presentation, not applicable or unspecified; Z3A.36 36 weeks gestation of pregnancy
CPT/HCPCS: 59025

== ENCOUNTER 2023-07-07 06:30 | Outpatient (CLI) | payer OTHER ==
[2023-07-07] MEDS ORDERED: ONDANSETRON 4 MG/2 ML VIAL IVP PRN ×2 (06:52→10:14)
[2023-07-07] MEDS ORDERED: RHO(D) IMMUNE GLOBULIN 300 MCG SYRINGE IM PRN (06:52)
[2023-07-07] MEDS ORDERED: fentaNYL 100 MCG/2 ML VIAL IVP PRN (06:52)
--- NOTE | 2023-07-07 06:59 | HISTORY & PHYSICAL EXAMINATION ---
History of Present Illness - History of Present Illness HPI Comment/Other: HPI: Patient is a 37-year-old at 37 weeks 1 day gestation here for external cephalic version. Fetus was persistently breech presentation through her visit last week. She has no new questions and would like to proceed. Course LMP: 10/18/2022 CARMEN by LMP: 07/25/2023 Initial U/S: 12/06/2022 6+3 by sac FINAL CARMEN: 07/29/2023 Pre- Weight: 185 BMI: 29.11 FOB . Problems: high risk for many reasons. MFM monitoring. FMLA started 02/19/23 - V high risk . LEEP x 4 & 1 CKC -CL length - 1.85-2.13cm on 02/06 -MFM (per patient) she is not a candidate for cerclage as there is "not enough cervix" -Cervix at 2.5 cm, on progesterone. stopped 37 weeks. -lifting precautions AMA - 37yo -cfDNA through MFM, and SMA, and PKU genetic test. IVF -NSTs at term -Discussed surveillance and 39-40 week induction. Patient will cconsider. RA -on cimzia from [place], switched during this , and her hands are markedly more sore. 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 low ferritin of 18.7 on 06/22. Allergies - on loratadine, monoleukast Anxiety -on escitalopram Blood type B+ Ab: neg CBC:12.0/36.8 PLT 204 RI/VZVI HBsAg Neg HepC NR RPR/AB-EIA: NR HIV: NR PAP:02/19/21 ECC wnl, PAP ASCUS-H 01/08/23- NILM HPV NEG (F/U 1 YEAR) GC/CT: NEG HSV: denies self/partner Genetic testing: Normal, NT normal at . Covid: none Flu: declines 01/08 due to egg allergy FAS: Completed at [facility]. 03/05/23 Placenta:left lateral/complete previa Cord:3VC AZUL:Normal EFW:295g 56th%ile 04/03/23 F/U Anterior placenta w/o Previa 06/02/23 33w0d 58%ile. AZUL 14 50gm OGCT: 170 3HR GTT: 86 141, 124, 114 TDAP:04/28 Breast Pump:04/17 3rd trimester H/H PLT 10.8/32.7 plt 249 06/22- 12.1/37.8 plt 284 ferritin- 18.7 GBS:Negative 06/22 Delivery plan: Contraception: Feed: breast PMH No pertinent medical history PSH Denies previous surgery OB History G1, P0 SH Denies tobacco, alcohol, drugs Family History History: PKU Allergies No known drug allergies Medications Cimzia Escitalopram Hydroxychloroquine Omeprazole vitamins Physical exam: General: Alert, oriented, no acute distress Head: Normal cephalic atraumatic Eyes: PERRLA, extraocular motions intact. Respiratory: Normal rate of respiration. No accessory muscle use, normal respiratory effort. Cardiovascular: Regular rate and rhythm Abdomen: Gravid, nontender, nondistended Extremities: Normal range of motion Neuro: Oriented x3. Normal movements Psych: Appropriate mood and affect. Normal judgment and insight FHT: 150 beats per baseline, moderate variability, accelerations present, no decelerations. Reactive NST. [place]: Quiescent Plan 37-year-old G1, P0 with transverse presentation 1. malpresentation -Currently transverse presentation with head to maternal right. -Discussed risk, benefits, alternatives to external cephalic version and patient agrees to proceed. -Plan for regional anesthesia for pain control. History - Past Medical History Respiratory: reports: Asthma Psych: reports: Anxiety Musculoskeletal: reports: Rheumatoid arthritis MRSA Hx?: No - Past Surgical History General: reports: Colonoscopy, EGD Ortho: reports: Other - POLST Patient has POLST: No Meds/Allgy - Home Medications Home Medications: Ambulatory Orders Medication Instructions Recorded Confirmed Albuterol Sulf [Ventolin Hfa 1 - 2 puffs INH Q4HR PRN #1 inhaler 08/22/20 09/03/21 Inhaler] Adalimumab [Humira Pen] SUBQ 09/03/21 Hydroxychloroquine [Plaquenil] 200 mg PO BID 09/03/21 09/03/21 predniSONE [Deltasone] 20 mg PO [id number] #21 tab 09/03/21 predniSONE [Deltasone] 40 mg PO DAILY 3 Days #6 tablet 01/06/22 Cefdinir 300 mg PO BID #20 cap 12/27/22 - Allergies Allergies/Adverse Reactions: Allergies Allergy/AdvReac Type Severity Reaction Status Date / Time egg white Allergy Nausea Uncoded 03/16/23 12:25
[2023-07-07] MEDS ORDERED: MINERAL OIL LIGHT 10 ML TOP SCH (07:00)
[2023-07-07 07:24] VITALS: O2SAT 97
[2023-07-07] MEDS ORDERED: BUPIVACAINE 0.5% PF 10 ML VIAL ONE (07:51)
[2023-07-07] MEDS ORDERED: ePHEDrine 50 MG/ML VIAL IVP ONE (07:51)
[2023-07-07] MEDS ORDERED: PHENYLEPHRINE HCL 0.5 MG/5 ML AMPULE ONE (07:51)
[2023-07-07] MEDS ORDERED: LIDOCAINE-PF 2% 10 ML AMP SUBQ ONE (07:51)
[2023-07-07] MEDS: LACTATED RINGERS 1,000 ML IV SCH (08:04)
[2023-07-07] MEDS: SODIUM CHLORIDE FLUSH 0.9% 10 ML SYRINGE IVP PRN (08:05)
--- NOTE | 2023-07-07 08:23 | ANESTHESIA ---
Pre-Anesthesia VS, & Labs - Diagnosis 37 y/o 37 weeks; breech - Procedure version Vital Signs: Temp Pulse Resp BP Pulse Ox O2 Flow Rate 36.7 C 100 16 109/81 H 97 07/07/23 08:16 07/07/23 07:15 07/07/23 07:15 07/07/23 07:15 07/07/23 07:15 Height: 5 ft 7 in Weight (kg): 95.254 kg Body Mass Index: 32.8 BMI Classification: Obese - NPO Last Fluid Intake: 0600 Last Food Intake: >8 hours - Is Patient ?: Yes Home Medications and Allergies Active Medications Fentanyl (Fentanyl 100 Mcg/2 Ml Vial) 50 mcg IVP .ONCE PRN PRN Reason: Severe Pain (Score 7-10) Lactated Ringer's (Lr) 1,000 mls @ 125 mls/hr IV .Q8H YVETTE Last Admin: 07/07/23 08:04 Dose: 125 mls/hr Mineral Oil (Mineral Oil Light 10 Ml) 10 ml TOP .ONCE YVETTE Ondansetron HCl (Ondansetron 4 Mg/2 Ml Vial) 4 mg IVP .ONCE PRN PRN Reason: Nausea / Vomiting Rho Immune Globulin (Rho(D) Immune Globulin 300 Mcg Syringe) 300 mcg IM .ONCE PRN PRN Reason: For Rh incompatibilty. Sodium Chloride (Sodium Chloride Flush 0.9% 10 Ml Syringe) 10 ml IVP PRN PRN PRN Reason: NEEDED PER PROVIDER ORDERS Last Admin: 07/07/23 08:06 Dose: 10 ml Terbutaline Sulfate (Terbutaline 1 Mg/Ml Vial) 0.25 mg SUBQ .ONCE PRN PRN Reason: Breech presentation Adalimumab [Humira Pen] SUBQ 09/03/21 Hydroxychloroquine [Plaquenil] 200 mg PO BID 09/03/21 Allergies/Adverse Reactions: Allergies Allergy/AdvReac Type Severity Reaction Status Date / Time egg white Allergy Nausea Uncoded 03/16/23 12:25 Anes History & Medical History - Anesthetic History Anesthesia Complications: reports: No previous complications (says she tolerated propofol with a scope) Family history of Anesthesia Complications: Denies - Medical History Cardiovascular: reports: None Pulmonary: reports: Asthma (rare albuterol, no recent ER visits, no intubations) Gastrointestinal: reports: None Urinary: reports: None Musculoskeletal: reports: Rheumatoid arthritis (joint hypermobility) Endocrine/Autoimmune: reports: None Blood Disorders: reports: None Smoking Status: Never smoker Psychosocial: reports: No issues indicated - Surgical History General: reports: Colonoscopy, EGD Orthopedic: reports: Other Exam General: Alert Dental: WNL Mouth Openin Fingerbreadth Neck Mobility: Normal Mallampati classification: II Thyromental Distance: 4-6 cm Plan Anesthesia Type: Spinal (CSE), Epidural Consent for Procedure(s) Verified and Reviewed: Yes Code Status: Attempt Resuscitation ASA classification: 2-Mild systemic disease Is this case an emergency?: No
[2023-07-07] MEDS ORDERED: LIDOCAINE 2%-EPI 1:100000 20 ML MDV ONE (08:54)
[2023-07-07 09:16] LABS: BASOPHILS % (AUTO) 0.3 %; EOSINOPHILS # (AUTO) 0.6 10^3/uL (0.0-0.7); EOSINOPHILS % (AUTO) 4.5 %; HCT - HEMATOCRIT 36.5 % (37.0-47.0); HGB - HEMOGLOBIN 11.8 g/dL (12.0-16.0); LYMPHOCYTES # (AUTO) 1.6 10^3/uL (1.5-3.5); LYMPHOCYTES % (AUTO) 12.5 %; MEAN CORPUSCULAR HEMOGLOBIN 32.2 pg (27.0-31.0); MEAN CORPUSCULAR HGB CONC 32.3 g/dL (32.0-36.0); MEAN CORPUSCULAR VOLUME 99.7 fL (81.0-99.0); MEAN PLATELET VOLUME 11.5 fL (7.9-10.8); MONOCYTES # (AUTO) 0.8 10^3/uL (0.0-1.0); MONOCYTES % (AUTO) 6.5 %; NEUTROPHILS # (AUTO) 9.5 10^3/uL (1.5-6.6); NEUTROPHILS % (AUTO) 75.8 %; PLT - PLATELET COUNT 277 10^3/uL (130-450); RED BLOOD COUNT 3.66 10^6/uL (4.20-5.40); RED CELL DISTRIBUTION WIDTH 13.1 % (12.0-15.0); WHITE BLOOD COUNT 12.5 x10^3/uL (4.8-10.8)
[2023-07-07] MEDS: TERBUTALINE 1 MG/ML VIAL SUBQ PRN (09:21)
--- NOTE | 2023-07-07 09:57 | PROCEDURE REPORT ---
Hospitalist Procedure Note - Procedure Note Procedure Note: Procedure date: 07/07/2023 Procedure: External cephalic version Indication: Transverse presentation, 37 weeks gestation Patient consent: Patient consented to the risks of external cephalic version including the risk of heart rate changes, bleeding, placental abruption, rupture membranes, emergency section, cord prolapse, hemorrhage, stillbirth. Discussed the benefits [place] avoiding a planned section. Discussed we are not successful we will abandon procedure and plan a section. Patient agrees to this and desires to proceed. Anesthesia: Combined spinal epidural Complications: None Estimated blood loss: None Postop diagnosis: Unsuccessful external cephalic version, 37 weeks gestation Procedure summary: Patient is a 37-year-old G1, P0 who presented for an external cephalic version for transverse presentation. Time out was taken. She was taken to the triage room where spinal anesthesia was adequate. Under ultrasound guidance, the fetus was noted to be in breech presentation with head to maternal right back down. The patient was given terbutaline for uterine relaxation. Using gentle, steady pressure, the buttocks was lifted out of the left lower quadrant and elevated to the left upper quadrant. We attempted a backwards roll moving the head towards the pelvis, but were unable to move past the hip. Intermittently, we checked the heart tones both with ultrasound and Doppler. We then attempted clockwise rolls. Intermittent ultrasound was used to confirm movement. Overall the procedure took approximately 20 minutes. Ultrasound confirmed remained in transverse position. Patient was monitored with a reactive NST after the procedure.
[2023-07-07] MEDS ORDERED: NALBUPHINE 10 MG/ML AMP IVP PRN (10:14)
[2023-07-07] MEDS ORDERED: LACTATED RINGERS 500 ML IV ONE (10:14)
[2023-07-07] MEDS ORDERED: ePHEDrine 50 MG/ML VIAL IVP PRN (10:14)
[2023-07-07] MEDS ORDERED: diphenhydrAMINE INJ 50 MG/ML VIAL IVP PRN (10:14)
[2023-07-07] MEDS ORDERED: METOCLOPRAMIDE 10 MG/2 ML VIAL IVP PRN (10:14)
[2023-07-07] MEDS ORDERED: NALOXONE 0.4 MG/ML VIAL IVP PRN (10:14)
--- NOTE | 2023-07-07 13:33 | Ultrasound Report ---
PROCEDURE: OB Limited INDICATIONS: IVF OUTSIDE/PRIOR DATING DATA: Last menstrual period (LMP): 10/18/2022. LMP-based estimated date of delivery (CARMEN): 07/25/2023. First dating scan (date and location): 06/30/2023. Estimated date of delivery (CARMEN) from first dating scan: 07/28/2023. TECHNIQUE: Real-time scanning was performed of the fetus, with image documentation. COMPARISON: 06/30/2023 FINDINGS: A single living intrauterine gestation is present. Presentation: Transverse, head to the maternal right Placenta: Placental position is anterior, without previa. Amniotic fluid index: 15.8 cm, within normal limits for gestational age. heart rate: 157 beats per minutes. Maternal cervical canal: 3.2 cm long Estimated gestational age from initial scan: 37 weeks Left ovary is unremarkable. Right ovary is not seen.. IMPRESSION: Living intrauterine gestation at 37 weeks. AZUL is 15.8, within normal limits. Reviewed by: Davie Garduno MD on 07/07/2023 1:31 PM PDT Approved by: Davie Garduno MD on 07/07/2023 1:31 PM PDT Station ID: [id number]
[2023-07-07 14:59] VITALS: BP 124/80
--- NOTE | 2023-07-07 19:56 | ANESTHESIA POST OP EVALUATION ---
Anesthesia Post Eval - Post Anesthesia Eval Vitals: Last Vital Signs Temp 36.5 C 07/07/23 14:18 Pulse 101 H 07/07/23 14:18 Resp 18 07/07/23 14:18 BP 124/80 07/07/23 14:18 Pulse Ox 97 07/07/23 07:15 O2 Flow Rate CV Function Including HR & BP: Stable Pain Control: Satisfactory Nausea & Vomiting: Negative Mental Status: Baseline Respiratory Status: Airway Patent Hydration Status: Satisfactory Anesthesia Complications: None
== END 2023-07-07 14:36 | disposition home or self-care (01) ==
LOC: WFO 06:30 → FBP 06:50 → WFO 14:36
PROVIDERS: ATTEND Obstetrics & Gynecology
PROC: 10S0XZZ Reposition Products of Conception, External Approach (ICD-10-PCS; principal; 2023-07-07)
DX: O32.1XX0 Maternal care for breech presentation, not applicable or unspecified (principal); O99.213 Obesity complicating pregnancy, third trimester; Z3A.37 37 weeks gestation of pregnancy; O99.891 Other specified diseases and conditions complicating pregnancy; M06.9 Rheumatoid arthritis, unspecified; O99.013 Anemia complicating pregnancy, third trimester; D53.9 Nutritional anemia, unspecified; O99.343 Other mental disorders complicating pregnancy, third trimester; F41.9 Anxiety disorder, unspecified
CPT/HCPCS: 36415; 59025; 59412; 76815; 85025; J2372; J7120; 86850; 86900; 86901

== ENCOUNTER 2023-07-09 13:46 | Outpatient (CLI) | payer OTHER ==
[2023-07-09 14:05] VITALS: BP 118/79
--- NOTE | 2023-07-10 20:30 | PROCEDURE REPORT ---
- HPI Diagnosis/Indication for NST: Other (AMA, IVF, short cervix) Current EDU 07/27/23 Gestation 37 Weeks and 3 Days 1 Para 0 Vital Signs Temperature 98.6 F 07/09/23 14:00 Heart Rate 90 07/09/23 14:00 Respiratory Rate 17 07/09/23 14:00 Blood Pressure 118/79 07/09/23 14:00 Temperature 98.6 F 07/09/23 14:00 Heart Rate 90 07/09/23 14:00 Respiratory Rate 17 07/09/23 14:00 Blood Pressure 118/79 07/09/23 14:00 O2 Saturation If not protocol: Oxygen Flow, liters/minute - NST Procedure NST Procedure Start Date 07/09/23 Start Time 13:55 Stop Time 14:25 Vibroacoustic Stimulation Used No Patient States Movement Yes - Results and Plan Findings/Impression: Reactive for of 32 weeks gestation or more. NST tracing contains at least two heart rate accelerations that are at least 15 beats per minute above the baseline rate and lasting at least 15 seconds from onset to return to baseline within a twenty minute period. Plan: care as scheduled.
== END 2023-07-09 14:30 | disposition home or self-care (01) ==
LOC: WFO 13:46 → FBP 13:49 → WFO 14:30
PROVIDERS: ATTEND Obstetrics & Gynecology
DX: O09.813 Supervision of pregnancy resulting from assisted reproductive technology, third trimester (principal); Z3A.37 37 weeks gestation of pregnancy; O26.873 Cervical shortening, third trimester
CPT/HCPCS: 59025

== ENCOUNTER 2023-07-14 09:39 | Outpatient (CLI) | payer OTHER ==
--- NOTE | 2023-07-14 13:03 | Ultrasound Report ---
PROCEDURE: OB Follow up INDICATIONS: ABN GLUCOSE TOLERANCE IN PREG OUTSIDE/PRIOR DATING DATA: Last menstrual period (LMP): 10/18/2022. LMP-based estimated date of delivery (CARMEN): 07/25/2023. First dating scan (date and location): 06/30/2023. Estimated date of delivery (CARMEN) from first dating scan: 07/28/2023. The below data below was generated using the ultrasound CARMEN of 07/28/2023 TECHNIQUE: Real-time scanning was performed of the fetus, with image documentation and biometric measurements. Endovaginal scanning: Not performed. COMPARISON: OB ultrasound on July 07, 2023 FINDINGS: General: A single living intrauterine gestation is present. Presentation: Transverse Placenta: Placental position is anterior, without previa. Amniotic fluid index: 8.1 cm, which is at 7.8% heart rate: 140 beats per minute. Maternal cervical canal: 3.5 cm long; normal length is 2.5 cm or more. biometrics: Biparietal diameter: 9.15 cm, 37 weeks and 1 day Head circumference: 32.3 cm, 36 weeks and 4 days Abdominal circumference: 31.5 cm, 35 weeks and 4 days Femur length: 6.95 cm, 35 weeks and 5 days Estimated gestational age from initial scan: 38 weeks and 0 days Composite gestational age from present scan: 36 weeks and 2 days Estimated weight and percentile: 2779.3 g, 13.3% Measurement variability in biometric dating: +/- 10 days from 12-20 weeks gestation, +/- 2 weeks from 20-30 weeks gestation, +/- 3 weeks at 30 weeks gestation or more. Other: Not applicable. IMPRESSION: 1.Single living intrauterine gestation in transverse presentation. Estimated gestational age is 38 we eks and 0 days by initial ultrasound. 2.AZUL is 8.1 cm which is less than the 10th percentile. 3.Estimated weight is at 13.3%. Reviewed by: Farrah Méndez MD on 07/14/2023 1:02 PM PDT Approved by: Farrah Méndez MD on 07/14/2023 1:02 PM PDT Station ID: [id number]
== END 2023-07-14 09:40 | disposition home or self-care (01) ==
LOC: DI 09:39
PROVIDERS: ATTEND Obstetrics & Gynecology
DX: O99.810 Abnormal glucose complicating pregnancy (principal); O09.813 Supervision of pregnancy resulting from assisted reproductive technology, third trimester; Z3A.38 38 weeks gestation of pregnancy

== ENCOUNTER 2023-07-14 10:34 | Outpatient (CLI) | payer OTHER ==
[2023-07-14 11:46] VITALS: BP 128/85
--- NOTE | 2023-07-15 21:18 | PROCEDURE REPORT ---
- HPI Diagnosis/Indication for NST: Other (AMA, IVF) Current EDU 07/27/23 Gestation 38 Weeks and 1 Days 1 Para 0 Vital Signs Temperature 98.3 F 07/14/23 10:45 Heart Rate 111 H 07/14/23 10:45 Respiratory Rate 18 07/14/23 10:45 Blood Pressure 128/85 H 07/14/23 10:45 Temperature 98.3 F 07/14/23 10:45 Heart Rate 111 H 07/14/23 10:45 Respiratory Rate 18 07/14/23 10:45 Blood Pressure 128/85 H 07/14/23 10:45 O2 Saturation If not protocol: Oxygen Flow, liters/minute - NST Procedure NST Procedure Start Date 07/14/23 Start Time 10:52 Stop Time 11:31 Vibroacoustic Stimulation Used No Patient States Movement Yes: IVF - Results and Plan Findings/Impression: Reactive for of 32 weeks gestation or more. NST tracing contains at least two heart rate accelerations that are at least 15 beats per minute above the baseline rate and lasting at least 15 seconds from onset to return to baseline within a twenty minute period. Plan: care as scheduled.
== END 2023-07-14 11:45 | disposition home or self-care (01) ==
LOC: WFO 10:34 → FBP 10:37 → WFO 11:45
PROVIDERS: ATTEND Obstetrics & Gynecology
DX: O09.813 Supervision of pregnancy resulting from assisted reproductive technology, third trimester (principal); O09.513 Supervision of elderly primigravida, third trimester; O99.810 Abnormal glucose complicating pregnancy; Z3A.38 38 weeks gestation of pregnancy
CPT/HCPCS: 59025

== ENCOUNTER 2023-07-17 06:40 | Inpatient (IN) | payer OTHER ==
[2023-07-17] MEDS ORDERED: LACTATED RINGERS 1,000 ML ONE (07:09)
[2023-07-17] MEDS ORDERED: LACTATED RINGERS 500 ML IV ONE (07:14)
[2023-07-17 07:47] LABS: BASOPHILS % (AUTO) 0.2 %; EOSINOPHILS # (AUTO) 0.4 10^3/uL (0.0-0.7); EOSINOPHILS % (AUTO) 3.1 %; HCT - HEMATOCRIT 38.6 % (37.0-47.0); HGB - HEMOGLOBIN 12.5 g/dL (12.0-16.0); LYMPHOCYTES # (AUTO) 1.6 10^3/uL (1.5-3.5); LYMPHOCYTES % (AUTO) 10.9 %; MEAN CORPUSCULAR HEMOGLOBIN 31.7 pg (27.0-31.0); MEAN CORPUSCULAR HGB CONC 32.4 g/dL (32.0-36.0); MEAN PLATELET VOLUME 10.8 fL (7.9-10.8); MONOCYTES # (AUTO) 0.9 10^3/uL (0.0-1.0); MONOCYTES % (AUTO) 6.1 %; NEUTROPHILS # (AUTO) 11.3 10^3/uL (1.5-6.6); NEUTROPHILS % (AUTO) 79.3 %; PLT - PLATELET COUNT 284 10^3/uL (130-450); RED BLOOD COUNT 3.94 10^6/uL (4.20-5.40); RED CELL DISTRIBUTION WIDTH 13.1 % (12.0-15.0); WHITE BLOOD COUNT 14.3 x10^3/uL (4.8-10.8)
[2023-07-17] MEDS ORDERED: OXYTOCIN/SODIUM CHLORIDE 500 ML IV ONE (07:50)
[2023-07-17] MEDS ORDERED: MORPHINE PF 5 MG/10 ML VIAL ONE (07:50)
[2023-07-17] MEDS ORDERED: fentaNYL 100 MCG/2 ML VIAL ONE (07:50)
[2023-07-17] MEDS ORDERED: OXYTOCIN 10 UNIT/ML VIAL ONE (07:51)
[2023-07-17] MEDS ORDERED: PHENYLEPHRINE HCL 0.5 MG/5 ML AMPULE ONE ×2 (07:51→08:33)
[2023-07-17] MEDS ORDERED: SODIUM CHLORIDE 0.9% 10 ML VIAL IVP ONE ×2 (07:53→08:00)
[2023-07-17 07:55] LABS: ALBUMIN 3.5 g/dL (3.2-5.5); BILIRUBIN,TOTAL 0.4 mg/dL (0.2-1.0); CALCIUM 9.4 mg/dL (8.5-10.3); CREATININE 0.7 mg/dL (0.6-1.3); POTASSIUM 3.6 mmol/L (3.5-4.5); TOTAL PROTEIN 7.1 g/dL (6.4-8.9)
[2023-07-17] MEDS ORDERED: miSOPROStoL 200 MCG TABLET ONE (07:58)
[2023-07-17] MEDS ORDERED: METHYLERGONOVINE 0.2 MG/ML VIAL ONE (07:58)
[2023-07-17] MEDS ORDERED: CARBOPROST TROMETHAMINE 250 MCG/ML VIAL IM ONE (07:58)
[2023-07-17] MEDS ORDERED: ceFAZolin 1 GM VIAL ONE (08:00)
[2023-07-17] MEDS ORDERED: CITRIC ACID/SODIUM CITRATE 15 ML UDC PO ONE (08:02)
[2023-07-17] MEDS: ceFAZolin (2G) 2 GM in SODIUM CHLORIDE 0.9% MINIBAG 100 ML IV ONE (08:05)
[2023-07-17] MEDS ORDERED: diphenhydrAMINE INJ 50 MG/ML VIAL ONE (08:44)
[2023-07-17] MEDS ORDERED: SODIUM CHLORIDE 0.9% 1,000 ML ONE (08:55)
[2023-07-17] MEDS ORDERED: KETOROLAC 30 MG/ML VIAL ONE (08:56)
[2023-07-17] MEDS ORDERED: LACTATED RINGERS 1,000 ML IV SCH ×2 (09:00→10:00)
[2023-07-17] MEDS: LACTATED RINGERS 1,000 ML IV ONE (09:27)
[2023-07-17] MEDS ORDERED: NALOXONE 0.4 MG/ML VIAL IVP PRN ×2 (09:33→09:41)
[2023-07-17] MEDS ORDERED: CALCIUM CARBONATE CHEW 500 MG TABLET PO PRN (09:33)
[2023-07-17] MEDS ORDERED: LABETALOL 20 MG/4 ML SYRINGE IVP PRN ×3 (09:33)
[2023-07-17] MEDS ORDERED: NIFEdipine 10 MG CAPSULE PO PRN (09:33)
[2023-07-17] MEDS ORDERED: OXYTOCIN/SODIUM CHLORIDE 500 ML IV PRN (09:33)
[2023-07-17] MEDS ORDERED: ONDANSETRON 4 MG/2 ML VIAL IVP PRN (09:33)
[2023-07-17] MEDS ORDERED: diphenhydrAMINE 25 MG CAPSULE PO PRN (09:33)
[2023-07-17] MEDS ORDERED: METOCLOPRAMIDE 10 MG/2 ML VIAL IVP PRN (09:33)
[2023-07-17] MEDS ORDERED: hydrALAZINE INJ 20 MG/ML VIAL IVP PRN ×2 (09:33)
[2023-07-17] MEDS ORDERED: diphenhydrAMINE INJ 50 MG/ML VIAL IVP PRN (09:33)
[2023-07-17] MEDS ORDERED: SIMETHICONE CHEW 80 MG TABLET PO PRN (09:33)
[2023-07-17] MEDS ORDERED: HYDROmorphone 0.5 MG/0.5 ML SYRINGE IVP PRN (09:41)
[2023-07-17] MEDS ORDERED: ATROPINE ABBOJECT 1 MG/10 ML SYRINGE IVP PRN (09:41)
[2023-07-17] MEDS ORDERED: FAMOTIDINE 20 MG/2 ML VIAL IVP PRN (09:41)
[2023-07-17] MEDS ORDERED: fentaNYL 100 MCG/2 ML VIAL IVP PRN (09:41)
[2023-07-17] MEDS ORDERED: MORPHINE 2 MG/ML CARPUJECT IVP PRN (09:41)
--- NOTE | 2023-07-17 09:49 | ANESTHESIA ---
Pre-Anesthesia VS, & Labs - Diagnosis Active labor, transverse position - Procedure primary c/s Vital Signs: Temp Pulse Resp BP Pulse Ox O2 Flow Rate 36.9 C 93 17 109/59 L 100 07/17/23 08:00 07/17/23 07:00 07/17/23 07:00 07/17/23 07:00 07/17/23 07:00 Height: 5 ft 7 in Weight (kg): 95.254 kg Body Mass Index: 32.8 BMI Classification: Obese - NPO >8 hours - Is Patient ?: Yes - Lab Results Current Lab Results: Laboratory Tests 07/17/23 07:18: Sodium 134 L, Potassium 3.6, Chloride 103, Carbon Dioxide 21, Anion Gap 10.0, BUN 10, Creatinine 0.7, Estimated GFR (MDRD) 93, Glucose 77, Calcium 9.4, Total Bilirubin 0.4, AST 15, ALT 9 L, Alkaline Phosphatase 214 H, Total Protein 7.1, Albumin 3.5, Globulin 3.6, Albumin/Globulin Ratio 1.0 07/17/23 07:18: WBC 14.3 H, RBC 3.94 L, Hgb 12.5, Hct 38.6, MCV 98.0, MCH 31.7 H , MCHC 32.4, RDW 13.1, Plt Count 284, MPV 10.8, Neut # (Auto) 11.3 H, Lymph # (Auto) 1.6, [place] # (Auto) 0.9, Eos # (Auto) 0.4, Baso # (Auto) 0.0, Absolute Nucleated RBC 0.00, Nucleated RBC % 0.0 07/17/23 07:18: Blood Type B POSITIVE, Antibody Screen NEGATIVE Lab results reviewed: Yes Fish Bones: 07/17/23 07:18 07/17/23 07:18 Home Medications and Allergies Active Medications Hydroxychloroquine Sulfate (Hydroxychloroquine 200 Mg Tablet) 200 mg PO BID YVETTE Lactated Ringer's (Lr) 1,000 mls @ 125 mls/hr IV .Q8H YVETTE Sodium Chloride (Sodium Chloride Flush 0.9% 10 Ml Syringe) 10 ml IVP PRN PRN PRN Reason: NEEDED PER PROVIDER ORDERS Adalimumab [Humira Pen] SUBQ 09/03/21 Hydroxychloroquine [Plaquenil] 200 mg PO BID 09/03/21 Allergies/Adverse Reactions: Allergies Allergy/AdvReac Type Severity Reaction Status Date / Time egg white Allergy Nausea Uncoded 03/16/23 12:25 Anes History & Medical History - Anesthetic History Anesthesia Complications: reports: No previous complications Family history of Anesthesia Complications: Denies Family history of Malignant Hyperthermia: Denies - Medical History Cardiovascular: reports: None Pulmonary: reports: Asthma (rare albuterol, no recent ER visits, no intubations) Gastrointestinal: reports: None Urinary: reports: None Neuro: reports: None Musculoskeletal: reports: Rheumatoid arthritis (joint hypermobility) Endocrine/Autoimmune: reports: None Blood Disorders: reports: None Smoking Status: Never smoker Psychosocial: reports: No issues indicated History of Cancer?: No - Surgical History General: reports: Colonoscopy, EGD Orthopedic: reports: Other Exam General: Alert, Oriented x3, Cooperative, No acute distress Dental: WNL Mouth Openin Fingerbreadth Neck Mobility: Normal Mallampati classification: II Thyromental Distance: 4-6 cm Mental/Cognitive Status: Alert/Oriented X3, Normal for patient Plan Anesthesia Type: Spinal Consent for Procedure(s) Verified and Reviewed: Yes Code Status: Attempt Resuscitation ASA classification: 2-Mild systemic disease Is this case an emergency?: Yes
--- NOTE | 2023-07-17 09:53 | HISTORY & PHYSICAL EXAMINATION ---
Admit History - Visit Reason Visit Reason: Contractions - Risk/History: positive: High risk Complications This : positive: Other (RA, LEEP x 3 with short cervix, IVF . 37 yo G1.) Smoking Status: Never smoker - Other Maternal History Other Maternal History: HPI: presents today with contractions since 5 am. comes in just before 7 am. very painful but only in her lower abdomen and into her back. very complicated . Patient presents today for her f/u at 38+1 ...................................................................Jeannette Prince TIAN July 14, 2023 9:07 AM. Allergies: Allergies Reviewed: Done * DAIRY (Critical) * EGG WHITES (Severe) * GLUTEN (Severe) Medications: Meds Reviewed: Done azithromycin 250 mg tablet (azithromycin) Take 1 tablet by mouth single dose Take 2 tabs the first day, and then 1 tab x 4 days thereafter. Augmentin 500-125 mg tablet (amoxicillin-pot clavulanate) Take 1 tablet by mouth twice a day Cimzia Starter Kit 400 mg/2 mL (200 mg/mL x 2) syringe kit (certolizumab pegol) cefdinir 300 mg capsule (cefdinir) Cimzia 400 mg/2 mL (200 mg/mL x 2) syringe kit (certolizumab pegol) escitalopram oxalate 10 mg tablet (escitalopram oxalate) Take 1 tablet by mouth once a day azathioprine 50 mg tablet (azathioprine) Take 1 tablet by mouth hydroxychloroquine 200 mg tablet (hydroxychloroquine) epinastine 0.05% drops (epinastine) omeprazole 20 mg tablet,delayed release (DR/EC) (omeprazole) * fluocinolone Citrucel (sucrose) powder (methylcellulose (with sugar)) * ketoconazole * montelukast loratadine 10 mg tablet (loratadine) Take 1 tablet by mouth twice a day * [id number] fum-folic ac-om3 28-800-440 mg-mcg-mg combo pack (-lhtp fum-folic ac-om3) Take 1 tablet by mouth once a day Problems: Transverse lie with problem (ICD-652.30) (GTU98-U84.2xx0) Abnormal glucose tolerance in (ICD-648.83) (QBV61-Y62.810) Short cervix in , unspecified trimester (ICD-649.73) (CKL70-Q60.879) Macrocytic anemia (ICD-281.9) (FES20-O77.9) Supervision of resulting from assisted reproductive technology, second trimester (ICD-V23.85) (OOZ29-V50.812) Supervision of elderly primigravida, first trimester (ICD-V23.81) (ICD10- O09.511) Low back pain, chronic (ICD-724.2) (QVR23-C03.59) Supervision high risk , first trimester (ICD-V23.9) (AJO31-W08.91) Female infertility (ICD-628.9) (DDW25-U03.9) Rheumatoid arthritis with rheumatoid factor of unspecified hand without organ or systems involvement (UHM01-R17.749) BERNIE 3, severe cervical dysplasia (ICD-233.1) (WCW30-M07.9) Past Medical History: Reviewed and updated today: Rheumatoid arthritis 2020 on Humira and now Cymzia Anemia as a teenager, ok now Anxiety on escitalporam since 2020 Asthma - exercise induced. Chronic Back Pain - maybe arthritis in her sacral area. constant low back pain. no PT now, did not help. lives at a 1-2/10 pain level. hypermobility of her joints, usha shoulders. excema in her ears, scalp IBS - constipation on citrucel, occassional Miralax and fruit during the day. Migraines - infrequent now Cervical dysplasia --December 2021: LEEP #4: Satisfactory margins by Dr. Velazquez. --08/07/2021: BERNIE-3 -- 08/07/20 Colpo --_ BERNIE 3 -- 02/19/21 ECC wnl, PAP ASCUS-H --06/26/20: LEEP--> BERNIE-1 cannot rule out high grade (pos p16 and Ki- 67), neg ECC --05/2020: LEEP--> BERNIE-1, ECC with few fragments suggesting of high grade (pos p16 and Ki-67) --03/2020 COLPO--> BERNIE 2 ECC --02/2020: PAP: LSIL "higher degree may be present" +HR HPV, neg 16/18 --Reports normal pap 2019 and Normal paps after LEEP; unable to recall frequency of pap smears --02/2016 LEEP, performed at outside facility IVF to conceive current . Past Surgical History: Reviewed and updated today: Foot Surgery - Left 2015, Right 2011, plantar fascia released on both heels. broken left ulna with surgerical repair 1997 cold knife cone 2016 in [place] LEEP X 3 HS [Family History-CCC] Risk Factors-CCC: Smoked Tobacco Use: Never smoker Smokeless Tobacco Use: Never Vaping / e-cigarette use: Never Passive Smoke Exposure: no Alcohol Use: no Drug Use: no Marijuana Use: no Vital Signs: Patient Profile: 37 Years Old Female Height: 67 inches Weight: 210 pounds BMI: 33.01 BP sittin / 80 Vitals Entered By: Jeannette Reyes LPN (July 14, 2023 9:12 AM) Meds Reviewed: Done Allergies Reviewed: Done Flowsheet View for Follow-up Visit Estimated weeks of gestation: 38 04/20 Weight: 210 Blood pressure: 120 / 80 Headache: No Nausea/vomiting: No Edema: n FHR: RNST Vaginal bleeding: no Vaginal discharge: no activity: yes Labor symptoms: some contractions position: transv Taking vits? Y Next visit: 1 wk Comment: would like to try version one more time and proceed with c seciton if it does not work. scheduled for next Friday. consents reviewed and signed. procedure discussed. here with her . -djl LMP: 10/18/2022 CARMEN by LMP: 07/25/2023 Initial U/S: 12/06/2022 6+3 by sac FINAL CARMEN: 07/29/2023 Pre- Weight: 185 BMI: 29.11 FOB . Problems: high risk for many reasons. MFM monitoring. FMLA started 02/19/23 - V high risk . LEEP x 4 & 1 CKC -CL length - 1.85-2.13cm on 02/06 -MFM (per patient) she is not a candidate for cerclage as there is "not enough cervix" -Cervix at 2.5 cm, on progesterone. stopped 37 weeks. -lifting precautions AMA - 37yo -cfDNA through [facility], and [facility], and PKU genetic test. IVF -NSTs at term -Discussed surveillance and 39-40 week induction. Patient will cconsider. RA -on cimzia from [place], switched during this , and her hands are markedly more sore. 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 low ferritin of 18.7 on 06/22. Allergies - on loratadine, monoleukast Anxiety -on escitalopram [ ] NEEDS PP PLAN. Blood type B+ Ab: neg CBC:12.0/36.8 PLT 204 RI/VZVI HBsAg Neg HepC NR RPR/AB-EIA: NR HIV: NR PAP:02/19/21 ECC wnl, PAP ASCUS-H 01/08/23- NILM HPV NEG (F/U 1 YEAR) GC/CT: NEG HSV: denies self/partner Genetic testing: Normal, NT normal at . Covid: none Flu: declines 01/08 due to egg allergy FAS: Completed at [facility]. 03/05/23 Placenta:left lateral/complete previa Cord:3VC AZUL:Normal EFW:295g 56th%ile 04/03/23 F/U Anterior placenta w/o Previa 06/02/23 33w0d 58%ile. AZUL 14 50gm OGCT: 170 3HR GTT: 86 141, 124, 114 TDAP:04/28 Breast Pump:04/17 3rd trimester H/H PLT 10.8/32.7 plt 249 06/22- 12.1/37.8 plt 284 ferritin- 18.7 GBS:Negative 06/22 Delivery plan: Contraception: Feed: breast Physical Constitutional: alert. Cardiovascular: RRR. Respiratory: no respiratory distress. Abdomen: nontender. Psych: affect and mood appropriate, normal interaction, good eye contact. Impression & Recommendations: Problem # 1: Transverse lie with problem (ICD-652.30) (ICD10- O32.2xx0) attempt version x 1 without success. will try again in OR. will proceed with c section if not successful, induction if successful. risks and benefits discussed. consents signed. having NST and ultrasound for fluid today. some contractions. what to do if she breaks her water and has a cord prolapse discussed. Other Orders: Visit Code Moses ([id number]) Gender ID Identifies as Female P: 0 LMP: EDC: 07/27/2023 Height: 67 (06/30/2023 9:03:13 AM) Weight: 210 Weight (pre-): 185 (12/02/2022 10:45:56 AM) Gonnorhea: negative (04/23/2017 1:57:03 PM) Chlamydia: NEGATIVE (01/08/2023 9:15:00 AM) Group B: NEGATIVE (06/23/2023 9:15:00 AM) Blood Type: B POS^B POSITIVE^L (01/10/2023 8:47:00 AM) Last Antibody Screen: NEGATIVE (01/10/2023 8:47:00 AM) Is pt sexually active? no Gonnorrhea: negative (04/23/2017 1:57:03 PM) Chlamydia: NEGATIVE (01/08/2023 9:15:00 AM) RPR: Non Reactive (01/10/2023 8:47:00 AM) Last Pap: Normal (01/08/2023 3:06:28 PM) Next pap due: 01/09/2024 (01/13/2023 2:56:47 PM) History of Colpo, LEEP Last Colpo: Low grade PRASHANT (mild dysplasia) (08/06/2021 8:10:41 AM) Patient Portal: [employer] - [facility] Vital Signs Temperature 97.3 F L 07/17/23 06:52 Heart Rate 93 07/17/23 06:52 Blood Pressure 109/59 L 07/17/23 06:52 Temperature 98.4 F 07/17/23 08:00 Heart Rate 74 07/17/23 09:40 Respiratory Rate 14 07/17/23 09:40 Blood Pressure 92/65 07/17/23 09:40 O2 Saturation 100 07/17/23 09:40 If not protocol: Oxygen Flow, liters/minute - NST Procedure NST Procedure Start Time 10:52 Stop Time 11:31 - Results and Plan Findings/Impression: unable to get a good tracing due to baby's postion. parts that are there seem to show moderate variability with acels. there is a questionable decel to 80s but unclear if that is just going to mom's heart beat. Plan: proceed with c section Meds/Allgy - Home Medications Home Medications: Ambulatory Orders Medication Instructions Recorded Confirmed Albuterol Sulf [Ventolin Hfa 1 - 2 puffs INH Q4HR PRN #1 inhaler 08/22/20 09/03/21 Inhaler] Adalimumab [Humira Pen] SUBQ 09/03/21 Hydroxychloroquine [Plaquenil] 200 mg PO BID 09/03/21 09/03/21 predniSONE [Deltasone] 20 mg PO [id number] #21 tab 09/03/21 predniSONE [Deltasone] 40 mg PO DAILY 3 Days #6 tablet 01/06/22 Cefdinir 300 mg PO BID #20 cap 12/27/22 Certolizumab [Cimzia] 400 mg SUBQ UD 07/17/23 Escitalopram [Lexapro] 10 mg PO DAILY 07/17/23 Montelukast [Singulair] 10 mg PO HS 07/17/23 Omeprazole 20 mg PO DAILY 07/17/23 - Allergies Allergies/Adverse Reactions: Allergies Allergy/AdvReac Type Severity Reaction Status Date / Time egg white Allergy Nausea Uncoded 03/16/23 12:25 Review of Systems - Constitutional Constitutional: denies: Fever - Gastrointestinal Gastrointestinal: denies: Nausea, Vomiting - Neurological Neurological: denies: Headache - Other Findings Other Findings: no rupture of membranes or vaginal discharge that she noticed. Physical - Abdominal Exam Vital Signs: Temp Pulse Resp BP Pulse Ox O2 Flow Rate 98.4 F 74 14 92/65 100 07/17/23 08:00 07/17/23 09:40 07/17/23 09:40 07/17/23 09:40 07/17/23 09:40 Contraction Intensity: positive: Moderate to strong Uterine Resting Tone: positive: Soft - Monitoring Heart Rate Baseline: strip unclear. - Presentation Presentation: positive: Transverse (ultrasound done, baby is transverse with back across cervix. Baby's head to mom's right side. fluid not measured but grossly, not much.) - Vaginal Exam Dilation (in cm): unable to feel cervix, too posterior. - Speculum Exam Speculum Exam Performed: positive: No Findings: positive: Other (vaginal fingers after exam with a moderate amount of green purulent discharge. Patient had not noticed this.) Plan for Labor - Plan For Labor I expect patient to be DC'd or transferred within 96 hours.: Yes Plan for Labor: Admit with labor. 38w4d. very high risk . recommend that we don't try a version again. She is ok with that. plan primary c section this am. consent signed.
--- NOTE | 2023-07-17 14:15 | ANESTHESIA POST OP EVALUATION ---
Anesthesia Post Eval - Post Anesthesia Eval Vitals: Last Vital Signs Temp 36.4 C L 07/17/23 11:36 Pulse 81 07/17/23 11:36 Resp 18 07/17/23 11:36 BP 110/79 07/17/23 11:36 Pulse Ox 99 07/17/23 11:36 O2 Flow Rate CV Function Including HR & BP: Stable Pain Control: Satisfactory Nausea & Vomiting: Negative Mental Status: Baseline Respiratory Status: Airway Patent Hydration Status: Satisfactory Anesthesia Complications: None
[2023-07-17] MEDS: ACETAMINOPHEN 500 MG TABLET PO SCH (14:35)
[2023-07-17] MEDS: KETOROLAC 30 MG/ML VIAL IVP SCH (15:10)
[2023-07-17] MEDS: SODIUM CHLORIDE FLUSH 0.9% 10 ML SYRINGE IVP PRN (15:14)
--- NOTE | 2023-07-17 16:02 | OPERATIVE REPORT ---
Operative Report - General Admit Date: 07/17/23 Procedure Date: 07/17/23 Planned Procedure: primary low transverse c section Pre-Op Diagnosis: labor at term. transverse lie of fetus, meconium Procedure Performed: as above. Post Op Diagnosis: as above. - Procedure Note Primary Surgeon: Enedina Eubanks MD Secondary Surgeon: Ronal Hutton MD and GABRIELA Arroyo Anesthesia Provider: Julieta Caldwell CRNA Anesthesia Technique: Spinal IV Fluids (mL): 1,000 Estimated Blood Loss (mL): 500 Urine Output (mL): 300 - Other Other Information/Narrative: Procedure: Low Transverse Section. Anesthesia: spinal with Duramorph Indications for Procedure: Patient is a 37yo, G1 with IVF at 38w 4d who presents with very painful contractions starting 2 hours prior to arrival. Baby is transverse back down. unable to be verted on a prior attempt. agrees to proceed with c section today. Procedure Details The risks, benefits, complications, treatment options, and expected outcomes were discussed with the patient. The patient concurred with the proposed plan, giving informed consent. The patient was taken to the Operating Room, identified. 2 grams of Cefazolin were given. She had sequential compression devices on her lower extremities. Albarado catheter was placed. A Time Out was held and the above information confirmed. The patient was prepped in the usual sterile manner, including vaginal prep. Drapes were placed. Anesthesia was tested and found to be adequate. A Pfannenstiel incision was made and carried down through the subcutaneous tissue to the fascia. Fascial incision was made and extended transversely. The fascia was from the underlying rectus tissue superiorly and inferiorly. The peritoneum was identified and entered. Peritoneal incision was stretched. The Derrek retractor was placed and rolled down. The uterus was palpated to examine lie. A low transverse uterine incision was made. This cut right into the placenta. The incision was stretched manually. Bag of water was entered during the process, lower in the uterus to try to get under the placenta. Fluid was minimal with meconium. I reached up to grab the baby's feet and brought them out through the incision. The baby was delivered and was quite pale and not crying. The cord was very long. The placenta was mostly out. Cord was clamped and cut and baby was taken by Dr. Phelps to the warmer. Baby was dried and stimulated. Cord blood was obtained for evaluation, but there was not enough blood to get gasses. The placenta was removed intact using gentle traction and appeared normal. The uterine outline, tubes and ovaries appeared normal. The uterine incision was closed with running locked sutures of 0 Monocryl suture. A second horizontal imbricating layer was placed with the same suture. AFter starting the second layer, the needle broke off the suture. A second stitch was used and tied to the first after tying it in place. Hemostasis was observed. The Derrek retractor was removed. Rectus muscles were examined carefully for bleeding. The fascia was then reapproximated with running sutures of 0 Vicryl. The subcutaneous tissue was brought together with 3.0 Vicryl suture and the skin was closed with 4.0 Monocryl in subcuticular fascia. Wide steri strip was placed over the wound. Bandage was placed. Uterus was expressed. Fundus was firm. Patient was then brought to her room in stable condition. Instrument, sponge, and needle counts were correct prior the abdominal closure and at the conclusion of the case. My assistants were scrubbed and present during the entire procedure and assisted with visualization, hemostasis, fundal pressure for infant delivery, and closure. Findings: Tubes, ovaries and uterus all appeared normal. Baby is a girl weighing 2727 grams. Apgars were 3/7/4 at 1/5/10 minutes. She was taken to the nursery and is on ghi flow O2 by nasal canula. Drains: Albarado catheter to gravity Specimens: none Complications: None; patient tolerated the procedure well. Condition: stable Plan: Routine post op care
[2023-07-17] MEDS: HYDROXYCHLOROQUINE 200 MG TABLET PO SCH (21:14)
[2023-07-17] MEDS: MONTELUKAST 10 MG TABLET PO SCH (21:14)
[2023-07-17] MEDS: DOCUSATE SODIUM 100 MG CAPSULE PO SCH (21:14)
[2023-07-17] MEDS: ENOXAPARIN 40 MG/0.4 ML SYRINGE SUBQ SCH (21:39)
[2023-07-18 05:56] LABS: HCT - HEMATOCRIT 29.2 % (37.0-47.0); HGB - HEMOGLOBIN 9.4 g/dL (12.0-16.0); MEAN CORPUSCULAR HEMOGLOBIN 32.2 pg (27.0-31.0); MEAN CORPUSCULAR HGB CONC 32.2 g/dL (32.0-36.0); MEAN PLATELET VOLUME 10.4 fL (7.9-10.8); RED BLOOD COUNT 2.92 10^6/uL (4.20-5.40); RED CELL DISTRIBUTION WIDTH 13.2 % (12.0-15.0); WHITE BLOOD COUNT 13.5 x10^3/uL (4.8-10.8)
--- NOTE | 2023-07-18 07:26 | PHARMACY PROGRESS NOTE ---
- Best Possible Medication History Admit Date and Time: 07/17/23 0802 Processed by: Pharmacy Medications reviewed in ED?: No Medication History completed: In progress Patient Interview: Pt unable to participate Secondary Source(s): Physician records, Insurance records As the person ultimately responsible for medication therapy, providers are able to order a medication from an existing home medication list in [facility] via the "Reconcile Routine" prior to Confirmation of that medication by desktop support engineer. Such practice is discouraged except when the physician, in their clinical judgment, deems that a medical need exists for a medication without regard to previous use.
--- NOTE | 2023-07-18 09:09 | PROVIDER PROGRESS NOTE ---
Subjective - Subjective Subjective: Subjective Patient reports she is doing well. Lochia appropriate. Denies heavy bleeding. Ambulating. Pelvic and abdominal pain well-controlled. Tolerating oral intake. Diet: Regular. Voiding without difficulty. Passing flatus. Denies BM. Patient is bonding with baby in nursery still on supplemental oxygen Breast feeding going well. Denies feeling lightheaded, dizzy or excessively fatigued. Objective General: Alert, oriented, no apparent distress. Cardiovascular: Regular rate. Regular rhythm. Lungs: No increased work of breathing. Abdomen: Uterus firm. Below umbilicus. No guarding or rebound. Extremities: No pain on palpation. No cords palpated. Distal pulses intact. Incision: Bandage in place. Assessment and Plan day 1. -Routine care -Anticipate discharge in 1 to 2 days Status post primary low-transverse section -Routine postoperative care Rheumatoid arthritis -Meds as needed, but can likely resume at home. Anxiety -Escitalopram Objective - Vital Signs/Intake & Output Vital Signs: Vital Signs x48h Temp Pulse Resp BP Pulse Ox 07/18/23 05:00 98.1 F 87 17 108/64 98 Intake & Output: Intake & Output 07/15/23 07/16/23 07/17/23 07/18/23 23:59 23:59 23:59 23:59 Output Total 800 Balance -800 - Lab Results Fish Bones: 07/18/23 05:39 07/17/23 07:18 Other Labs: Lab Results x24hrs 07/18/23 Range/Units 05:39 WBC 13.5 H (4.8-10.8) x10^3/uL RBC 2.92 L (4.20-5.40) 10^6/uL Hgb 9.4 L (12.0-16.0) g/dL Hct 29.2 L (37.0-47.0) % MCV 100.0 H (81.0-99.0) fL MCH 32.2 H (27.0-31.0) pg MCHC 32.2 (32.0-36.0) g/dL RDW 13.2 (12.0-15.0) % Plt Count 228 (130-450) 10^3/uL MPV 10.4 (7.9-10.8) fL
[2023-07-18] MEDS: IBUPROFEN 600 MG TABLET PO SCH (10:14)
[2023-07-18] MEDS: oxyCODONE 5 MG TABLET PO PRN (13:46)
[2023-07-18] MEDS: ESCITALOPRAM 10 MG TABLET PO SCH (17:02)
[2023-07-18] MEDS: CETIRIZINE 10 MG TABLET PO SCH (17:03)
--- NOTE | 2023-07-19 05:53 | PROVIDER PROGRESS NOTE ---
Subjective - Subjective Subjective: Subjective Patient reports she is doing well. Lochia appropriate. Denies heavy bleeding. Ambulating. Pelvic and abdominal pain well-controlled. Tolerating oral intake. Diet: Regular. Voiding without difficulty. Passing flatus. Denies BM. Patient is bonding with baby in room. Off oxygen and glucose. Breast feeding going well. Feeding with syringe. Pumping. Denies feeling lightheaded, dizzy or excessively fatigued. Objective General: Alert, oriented, no apparent distress. Cardiovascular: Regular rate. Regular rhythm. Lungs: No increased work of breathing. Abdomen: Uterus firm. Below umbilicus. No guarding or rebound. Extremities: No pain on palpation. No cords palpated. Distal pulses intact. Incision: Clean, dry, and intact. Assessment and Plan day 2. -Routine care -Anticipate discharge tomorrow Status post primary low-transverse section -Routine postop care Acute blood loss anemia -Mild anemia, appropriate drop after surgery. Asymptomatic. -IV pulled out, and declines IV today. -Oral supplementation. Objective - Vital Signs/Intake & Output Vital Signs: Vital Signs x48h Temp Pulse Resp BP Pulse Ox 07/19/23 00:00 97.9 F 92 18 121/62 98 Intake & Output: Intake & Output 07/16/23 07/17/23 07/18/23 07/19/23 23:59 23:59 23:59 23:59 Output Total 800 Balance -800 - Lab Results Fish Bones: 07/18/23 05:39 07/17/23 07:18 Other Labs: Lab Results x24hrs 07/18/23 Range/Units 05:39 WBC 13.5 H (4.8-10.8) x10^3/uL RBC 2.92 L (4.20-5.40) 10^6/uL Hgb 9.4 L (12.0-16.0) g/dL Hct 29.2 L (37.0-47.0) % MCV 100.0 H (81.0-99.0) fL MCH 32.2 H (27.0-31.0) pg MCHC 32.2 (32.0-36.0) g/dL RDW 13.2 (12.0-15.0) % Plt Count 228 (130-450) 10^3/uL MPV 10.4 (7.9-10.8) fL
[2023-07-19] MEDS ORDERED: ESCITALOPRAM 10 MG TABLET PO SCH (09:00)
--- NOTE | 2023-07-19 16:47 | PROVIDER PROGRESS NOTE ---
Progress Note patient up, walking in halls. IV to come out of baby later this afternoon. Baby doing well. no concerns at this time.
[2023-07-20] MEDS: FERROUS SULFATE 325 MG TABLET PO SCH (09:04)
[2023-07-20 09:08] VITALS: BP 111/83; O2SAT 99
--- NOTE | 2023-07-20 09:28 | DISCHARGE SUMMARY ---
"Discharge Summary Admit Date: 07/17/23 Discharge Date: 07/20/23 Discharging Provider: Enedina Eubanks MD Code Status: Attempt Resuscitation Condition at Discharge: Good Discharge Disposition: 01 Home, Self Care - DIAGNOSES Admission Diagnoses: 37 yo G1 with at 38 weeks, active labor. Transverse lie of baby. IVF . Discharge Diagnoses with Status of Each Condition: delivered by C section without complications. Acute blood loss anemia that is stable after her c section. RA, other issues stable. - HPI History of Present Illness: Pregancy conceived by IVF. Baby always transverse. Unable to move with ECV attemps. Also with LEEP x 3 and short cervix. Patient also has rheumatoid arthritis. Presented with very painful contractions in am. Baby was transverse back down. Plan c section with no further ECV attempt. - CONSULTS | PROCEDURES Procedures: Primary low transverse c section - HOSPITAL COURSE Hospital Course: Patient was admitted a c section was performed without complications. Placenta was anterior and I had to go through it to get to baby. Baby was delivered feet first. was pale and had poor tone. There was meconium and minimal fluid, although no h/o ROM. The cord was very long and thin. There was not enough blood in it for gases. Baby was brought to peds team for resuscitation. Apgars were 4/7/4. Baby was in nursery overnight but then went back to room with mom. Mom did well after c section. no complications. Discharged home with baby on PPD # 3 breast feeding. Baby was a girl weighing 2727 grams. - ALLERGIES Allergies/Adverse Reactions: Allergies Allergy/AdvReac Type Severity Reaction Status Date / Time egg AdvReac Nausea Verified 07/18/23 09:27 - MEDICATIONS Home Medications: Ambulatory Orders Medication Instructions Recorded Confirmed Albuterol Sulf [Ventolin Hfa 1 - 2 puffs INH Q4HR PRN #1 inhaler 08/22/20 09/03/21 Inhaler] Adalimumab [Humira Pen] SUBQ 09/03/21 Hydroxychloroquine [Plaquenil] 200 mg PO BID 09/03/21 07/18/23 predniSONE [Deltasone] 20 mg PO [id number] #21 tab 09/03/21 predniSONE [Deltasone] 40 mg PO DAILY 3 Days #6 tablet 01/06/22 Certolizumab [Cimzia] 400 mg SUBQ UD 07/17/23 07/18/23 Escitalopram [Lexapro] 10 mg PO DAILY 07/17/23 07/18/23 Montelukast [Singulair] 10 mg PO HS 07/17/23 07/18/23 Omeprazole 20 mg PO DAILY 07/17/23 07/18/23 - PHYSICAL EXAM AT DISCHARGE General Appearance: positive: No acute distress Respiratory: positive: No respiratory distress Cardiovascular: positive: Regular rate & rhythm Skin: positive: Color nml Extremities: positive: Non-tender, Other (minimal edema) - LABS Result Diagrams: 07/18/23 05:39 07/17/23 07:18 - FOLLOW UP Follow Up: 1 week for wound check. - TIME SPENT Time Spent in Discharge (Minutes): 30"
--- NOTE | 2023-07-20 15:07 | Labor Flowsheet ---
Labor Flowsheet Datetime Report Generated by CPN: 07/20/2023 15:07 Datetime: 07/17/2023 14:04 Membranes Ruptured Date/Time: 07/17/2023 08:36 Amniotic Fluid Color: Light Meconium Datetime: 07/17/2023 07:42 COMMUNICATION Communication: Provider at Bedside Communication Comments: using ultrasound, baby transverse Datetime: 07/17/2023 07:34 Comments: tracing mom monitor adjusted Datetime: 07/17/2023 06:59 VITAL SIGNS NBP Sys/Camryn/Mean (mmHg): 109 : 59 : 72 Pulse: 93 LaborFlag: Labor Datetime: 07/14/2023 11:29 SpO2 (%): 97 Datetime: 07/07/2023 09:41 ASSESSMENT A Monitor Mode: External US FHR Baseline Rate : 145 Datetime: 07/07/2023 09:34 Variability: Moderate 6-25 bpm Accelerations: None Datetime: 07/07/2023 09:23 Patient Care Comments: ECV attempt #[address] Hutton Datetime: 07/07/2023 09:18 Anesthesia Comments: MORTGAGE UNDERWRITER gave doses of medication to relieve hypotension Datetime: 07/07/2023 09:13 PATIENT CARE IV/Blood Work: IV Bolus Started Datetime: 07/07/2023 09:10 Patient Position/Activity: Right Lateral; Low Fowlers Datetime: 07/07/2023 09:06 Epidural Procedure: Cath Placed Datetime: 07/07/2023 08:50 PROCEDURE TIME OUT Procedure Verify: Correct Patient Identity; Accurate Procedure Consent Form; Agreement on Procedure to be Done; Correct Patient Position ANESTHESIA Anesthesia Plans: Epidural; Spinal Epidural Positioning: Sitting Datetime: 07/07/2023 07:00 Stage of : Labor Datetime: 06/10/2023 15:30 VAGINAL EXAM Dilatation (cm): 0.0 Effacement (%): 0 Station: -3 Exam by: Dr. Eubanks Membrane Status: Intact Datetime: 06/10/2023 15:00 UTERINE ACTIVITY Frequency (min): uterine irritability Quality: Mild Pattern: Normal: <= 5 Contractions in 10 Minutes Resting Tone (Palpate): Relaxed Decelerations: None Category: Category I
== END 2023-07-20 14:45 | disposition home or self-care (01) | DRG 787 ==
LOC: WFO 06:40 → FBP 06:41 → WFO 08:01 → FBP 08:02
PROVIDERS: ADMIT Obstetrics & Gynecology; ATTEND Obstetrics & Gynecology
PROC: 10D00Z1 Extraction of Products of Conception, Low, Open Approach (ICD-10-PCS; principal; 2023-07-17 08:00)
DX: O32.2XX0 Maternal care for transverse and oblique lie, not applicable or unspecified (principal); D62 Acute posthemorrhagic anemia; Z3A.38 38 weeks gestation of pregnancy; Z37.0 Single live birth; O90.81 Anemia of the puerperium; O99.892 Other specified diseases and conditions complicating childbirth; M06.9 Rheumatoid arthritis, unspecified; O99.344 Other mental disorders complicating childbirth; F41.9 Anxiety disorder, unspecified; J45.990 Exercise induced bronchospasm; O99.52 Diseases of the respiratory system complicating childbirth; Z79.899 Other long term (current) drug therapy; O77.0 Labor and delivery complicated by meconium in amniotic fluid
CPT/HCPCS: 36415; 80053; 85025; 85027; 86850; 86900; 86901; 99215; A9270; J1200; J1650; J2210; J2274; J2372; J7120